=== PATIENT | female | born 1950 | race Caucasian/White ===

== ENCOUNTER 2019-04-13 11:00 | Outpatient (CLI) | payer MEDICARE, SELFPAY ==
--- NOTE | ~2019-04-13 | MM_ITS ---
EXAMINATION: MM screening [facility] BI w loi HISTORY: Screening mammogram TECHNIQUE: Craniocaudal and mediolateral oblique 3-D tomosynthesis images were obtained and synthetic 2-D images were generated. CAD analysis was submitted and interpreted. COMPARISON: 03/17/2018, 02/13/2017, 02/02/2016 bilateral digital screening mammogram examinations BREAST PARENCHYMAL COMPOSITION: There are scattered areas of fibroglandular density. FINDINGS: Bilateral scattered benign calcifications. There is no evidence of suspicious mass, calci fication, or architectural distortion to suggest malignancy in either breast. There has been no suspi cious interval change. IMPRESSION: 1. No mammographic evidence of malignancy. 2. Recommend routine screening mammography in one year. BI-RADS Category 2: Benign finding(s). Reviewed, dictated and finalized at location A. T NURSE
== END 2019-04-13 11:01 | disposition home or self-care (01) ==
LOC: CHSIMG 11:02
PROVIDERS: PCP Family Medicine; Visit Provider Family Medicine
DX: Z12.31 Encounter for screening mammogram for malignant neoplasm of breast (principal)
CPT/HCPCS: 77063; 77067

== ENCOUNTER 2019-10-22 10:40 | Outpatient (CLI) | payer MEDICARE, SELFPAY ==
--- NOTE | ~2019-10-22 | XR_ITS ---
XR foot RT min 3V DATE: 10/22/2019 11:11 INDICATION: Right lateral foot pain for one day following injury from fall TECHNIQUE: 4 views COMPARISON: None FINDINGS: There is moderate osteoarthritis of the first metatarsophalangeal joint with dorsal and med ial spurring of the first metatarsal head. No fracture, dislocation, periosteal reaction or bone destruction is detected. 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
== END 2019-10-22 10:41 | disposition home or self-care (01) ==
PROVIDERS: PCP Family Medicine; Visit Provider Family Medicine
DX: M79.671 Pain in right foot (principal)
CPT/HCPCS: 73630

== ENCOUNTER 2020-05-25 08:03 | Outpatient (CLI) | payer MEDICARE, SELFPAY ==
--- NOTE | ~2020-05-25 | MM_ITS ---
EXAMINATION: MM screening [facility] w loi HISTORY: Screening TECHNIQUE: Craniocaudal and mediolateral oblique 3-D tomosynthesis images were obtained and synthetic 2-D images were generated. CAD analysis was submitted and interpreted. COMPARISON: Comparison to multiple prior studies sequentially, with oldest reviewed study dated 01/11. BREAST PARENCHYMAL COMPOSITION: There are scattered areas of fibroglandular density. FINDINGS: There is no evidence of suspicious mass, calcification, or architectural distortion to sugg est malignancy in either breast. There has been no suspicious interval change. IMPRESSION: 1. No mammographic evidence of malignancy. 2. Recommend routine screening mammography in one year. BI-RADS Category 1: Negative Reviewed, dictated and finalized at location A.
== END 2020-05-25 08:04 | disposition home or self-care (01) ==
LOC: CHSIMG 08:05
PROVIDERS: PCP Family Medicine; Visit Provider Family Medicine
DX: Z12.31 Encounter for screening mammogram for malignant neoplasm of breast (principal)
CPT/HCPCS: 77063; 77067

== ENCOUNTER 2020-10-02 09:29 | Outpatient (CLI) | payer MEDICARE, SELFPAY | END 2020-10-02 09:30 | disposition home or self-care (01) | LOC: CHSIMG 09:30 | PROVIDERS: PCP Family Medicine; Visit Provider Obstetrics & Gynecology | DX: N95.1 Menopausal and female climacteric states (principal); Z53.8 Procedure and treatment not carried out for other reasons | CPT/HCPCS: 99199 ==

== ENCOUNTER 2020-10-05 08:24 | Outpatient (CLI) | payer MEDICARE, SELFPAY ==
--- NOTE | ~2020-10-05 | DEXA_ITS ---
Bone Density Report Name: Kira Ibarra Age: 70 Sex: Female Ethnicity: White Date of : 1950 Indication: osteopenia; monitoring treatment; height loss; Referring Provider: Sandeep Pryor Study: Bone densitometry was performed. Exam Date: October 05, 2020 Accession number: [id number] Bone Density: Region BMD T-score Z-score Classification AP Spine(L1-L4) 0.883 -1.5 0.6 Osteopenia Femoral Neck (Left) 0.568 -2.5 -0.8 Osteoporosis Total Hip (Left) 0.697 -2.0 -0.5 Osteopenia Femoral Neck (Right) 0.556 -2.6 -0.9 Osteoporosis Total Hip (Right) 0.718 -1.8 -0.4 Osteopenia Femoral Neck Mean 0.562 -2.6 -0.8 Osteoporosis Total Hip Mean 0.707 -1.9 -0.5 Osteopenia World Health Organization criteria for BMD impression classify patients as: Normal (T-score at or above -1.0), Osteopenia (T-score between -1.0 and -2.5), or Osteoporosis (T-score at or below -2.5). 10-year Fracture Risk: FRAX not reported because: Some T-score for Spine Total or Hip Total or Femoral Neck at or below -2.5 Treated for osteoporosis Previous Exams: Region Exam Age BMD T-score BMD Change BMD Change Date g/cm2 vs Baseline vs Previous AP Spine (L1-L4) 10/05/2020 70 0.883 -1.5 -0.086 (-8.9%) -0.037 (-4.0%) 03/27/2018 67 0.920 -1.2 -0.050 (-5.1%) 0.035 (4.0%)* 02/02/2016 65 0.884 -1.5 -0.085 (-8.8%) -0.038 (-4.1%) 01/28/2014 63 0.922 -1.1 -0.047 (-4.9%) -0.022 (-2.3%) 01/24/2012 61 0.944 -0.9 -0.025 (-2.6%) -0.025 (-2.6%) 10/30/2007 57 0.969 -0.7 Total Hip(Left) 10/05/2020 70 0.697 -2.0 0.001 (0.1%)# 0.008 (1.1%)# 03/27/2018 67 0.689 -2.1 -0.007 (-1.0%) 0.068 (11.0%)* 02/02/2016 65 0.620 -2.6 -0.076 (-10.9% -0.022 (-3.5%) 01/28/2014 63 0.643 -2.5 -0.053 (-7.7%) -0.047 (-6.8%) 01/24/2012 61 0.690 -2.1 -0.006 (-0.9%) -0.027 (-3.8%) 12/08/2009 59 0.717 -1.8 0.021 (3.0%) 0.021 (3.0%) 10/30/2007 57 0.696 -2.0 Total Hip(Right) 10/05/2020 70 0.718 -1.8 -0.009 (-1.2%) 0.049 (7.3%)# 03/27/2018 67 0.669 -2.2 -0.058 (-7.9%) 0.025 (3.8%) 01/28/2014 63 0.644 -2.4 -0.082 (-11.3% -0.044 (-6.4%) 01/24/2012 61 0.688 -2.1 -0.038 (-5.2%) -0.009 (-1.3%) 12/08/2009 59 0.697 -2.0 -0.029 (-4.0%) -0.029 (-4.0%) 10/30/2007 57 0.726 -1.8 *Denotes significance at 95% confidence level, LSC for AP Spine = 0.022 g/cm2, LSC for Total Hip = 0.027 g/cm2 # Denotes dissimilar scan types or analysis methods Clinical Information Provided by Patient:
== END 2020-10-05 08:25 | disposition home or self-care (01) ==
LOC: CHSIMG 08:26
PROVIDERS: PCP Family Medicine; Visit Provider Obstetrics & Gynecology
DX: Z78.0 Asymptomatic menopausal state (principal); M81.0 Age-related osteoporosis without current pathological fracture
CPT/HCPCS: 77080

== ENCOUNTER 2020-10-30 14:51 | Outpatient (RCR) | payer MEDICARE, SELFPAY ==
--- NOTE | 2020-11-06 12:22 | PTOPEVAL ---
Thank you for referring Kira Ibarra to [facility].? The patient is scheduled to be seen for therapy? ____x/week for ___ weeks. Please review, sign, date and return this plan of care ATA. I agree with and certify that the following plan of care is medically necessary. Referring Physician Date Admitting Provider: Attending Provider: Sandeep Pryor MD Referring Provider: *PT Outpatient Evaluation Start: 10/30/20 15:14 Freq: Status: Active Protocol: Document 10/30/20 15:15 [facility] (Rec: 10/30/20 16:58 [facility] [id number]) Therapy Assessment Status Assessment Status Assessment Status Evaluation Outpatient Past Medical History Neurological History Hx Neurological Disorders No Significant History Cardiovascular History Hx Hypercholesterolemia Yes Respiratory History Hx Asthma Yes Hx Other Respiratory Disorders Yes: chronic infections Gastrointestinal History Hx Appendectomy Yes Hx Gastroesophageal Reflux Disease Yes Hx Polyps Yes Genitourinary History Hx Genitourinary Disorders No Significant History Musculoskeletal History Hx Musculoskeletal Disorders No Significant History Hematological History Hx Hematological Disorders No Significant History Endocrine History Hx Endocrine Disorders No Significant History HEENT History Hx Eye Surgery Yes: silicon stent under left eye Integumentary History Hx Skin Disorders No Significant History Reproductive History Hx Post Menopausal Yes Psychosocial History Hx Psychiatric Disorders No Significant History Pain History History of Any Previous or Ongoing No Significant History Instance of Pain Anesthesia History Hx Anesthesia Reactions No Significant History Evaluation Information Problem Diagnosis osteoporosis Onset 10/26/20 Subjective Information patient reports she is coming Query Text:As Reported By Patient/ to therapy for strengthening Family secondary to her osteoporosis. she reports she does not currently have any known fractures, but reports she has in the past had fractures from minor falls. she reports she has had a fall within in the last month. she reports she was on her boat and missed the ladder. she reports she also fell over the trailer hitch in the car from the boat . Prior Level of Function Comments
--- NOTE | 2020-11-16 13:15 | PTOPEVAL ---
Thank you for referring Kira Ibarra to [facility].? The patient is scheduled to be seen for therapy? ____x/week for ___ weeks. Please review, sign, date and return this plan of care ATA. I agree with and certify that the following plan of care is medically necessary. Referring Physician Date Admitting Provider: Attending Provider: Sandeep Pryor MD Referring Provider: *PT Outpatient Evaluation Start: 10/30/20 15:14 Freq: Status: Active Protocol: Document 11/16/20 11:05 [facility] (Rec: 11/16/20 13:15 [facility] [id number][facility] Therapy Assessment Status Assessment Status Assessment Status Discharge Outpatient Past Medical History Neurological History Hx Neurological Disorders No Significant History Cardiovascular History Hx Hypercholesterolemia Yes Respiratory History Hx Asthma Yes Hx Other Respiratory Disorders Yes: chronic infections Gastrointestinal History Hx Appendectomy Yes Hx Gastroesophageal Reflux Disease Yes Hx Polyps Yes Genitourinary History Hx Genitourinary Disorders No Significant History Musculoskeletal History Hx Musculoskeletal Disorders No Significant History Hematological History Hx Hematological Disorders No Significant History Endocrine History Hx Endocrine Disorders No Significant History HEENT History Hx Eye Surgery Yes: silicon stent under left eye Integumentary History Hx Skin Disorders No Significant History Reproductive History Hx Post Menopausal Yes Psychosocial History Hx Psychiatric Disorders No Significant History Pain History History of Any Previous or Ongoing No Significant History Instance of Pain Anesthesia History Hx Anesthesia Reactions No Significant History Evaluation Information Problem Diagnosis osteoporosis Onset 10/26/20 Subjective Information patient reports she feels Query Text:As Reported By Patient/ good this date. she reports Family she is compliant with her HEP at home. she reports she splits her exercises up between a few days. Pain Assessment Timing of Pain Assessment Timing of Pain Assessment Assessment Self Report Self Report Pain Level 0 Pain Score Pain Score 0: Self Report Lower Extremity Muscle Strength Testing Hip Strength Bilateral Hip Flexion Strength 4+ Good + Hip Abduction Strength 4+ Good + Knee Strength Right Knee Flexion Strength 5 Normal Knee Extension Strength 5 Normal Left Knee Flexion Strength 5 Normal Knee Extension Strength 5 Normal
== END 2020-11-16 13:45 | disposition home or self-care (01) ==
LOC: CHSPT 14:51
PROVIDERS: Visit Provider Obstetrics & Gynecology
DX: M81.0 Age-related osteoporosis without current pathological fracture (principal)
CPT/HCPCS: 97110; 97161

== ENCOUNTER 2020-11-03 14:09 | Outpatient (CLI) | payer MEDICARE, SELFPAY ==
--- NOTE | ~2020-11-03 | US_ITS ---
EXAMINATION: US soft tissue LE RT EXAM DATE: 11/03/2020 14:31 INDICATION: Swelling, mass, or lump right limb. TECHNIQUE: Multiple grayscale and Doppler images of the symptomatic right lateral thigh region were o btained (by a technologist who performed the scan) and subsequently reviewed. There is no prior stud y for comparison. FINDINGS: Scanning in the symptomatic right thigh region of concern demonstrates mildly heterogeneous fat echog enicity and unremarkable underlying musculature. No focal hematoma, abscess or other mass identified. IMPRESSION: Nonspecific subcutaneous fat heterogeneity which could be edema or fat necrosis. No focal hematoma. Reviewed, dictated and finalized at location B.
== END 2020-11-03 14:10 | disposition home or self-care (01) ==
LOC: CHSIMG 14:09
PROVIDERS: PCP Family Medicine; Visit Provider Family Medicine
DX: R22.41 Localized swelling, mass and lump, right lower limb (principal)
CPT/HCPCS: 76882

== ENCOUNTER 2021-05-28 08:20 | Outpatient (CLI) | payer MEDICARE, SELFPAY ==
--- NOTE | ~2021-05-28 | MM_ITS ---
EXAMINATION: MM screening [facility] w loi HISTORY: Screening mammogram TECHNIQUE: Craniocaudal and mediolateral oblique 3-D tomosynthesis images were obtained and synthetic 2-D images were generated. CAD analysis was submitted and interpreted. COMPARISON: 05/25/2020, 04/13/2019, 03/17/2018 bilateral screening mammogram examinations BREAST PARENCHYMAL COMPOSITION: The breasts are almost entirely fatty. FINDINGS: Scattered bilateral benign calcifications. There is no evidence of suspicious mass, calcifi cation, or architectural distortion to suggest malignancy in either breast. There has been no suspici ous interval change. IMPRESSION: 1. No mammographic evidence of malignancy. 2. Recommend routine screening mammography in one year. BI-RADS Category 2: Benign finding(s). Reviewed, dictated and finalized at location A.
== END 2021-05-28 08:21 | disposition home or self-care (01) ==
LOC: CHSIMG 08:21
PROVIDERS: PCP Family Medicine; Visit Provider Obstetrics & Gynecology
DX: Z12.31 Encounter for screening mammogram for malignant neoplasm of breast (principal)
CPT/HCPCS: 77063; 77067

== ENCOUNTER 2021-10-18 13:02 | Outpatient (RCR) | payer MEDICARE, SELFPAY ==
--- NOTE | 2021-10-18 16:25 | PTOPEVAL1 ---
Evaluation Information Assessment Status Evaluation Diagnosis Bilateral Hip OA Subjective Information Kira reports she has been having right hip pain that started in August 2021. She states pain came on all the sudden and she was having trouble with stairs and getting out of chairs. She reports a history of falls and chronic low back pain. When pain did not subside, she went to the rail specialist. She underwent x-rays and it showed bilateral hip osteoarthritis as well as lumbar degenerative disc disease. She had an injection in the right hip around the middle of September. The injection has allowed her to go from sitting to standing without excruciating pain. She has also been able to return to walking about 2 miles with just a mild increase in pain. She reports she previously walked 3-4 miles at a time and at a faster speed. Pain is located currently in the right outer hip. She also notes a decline in her ability to perform yardwork and difficulty sleeping. Reported Pain Level Pain Score 4: Self Report Assessment PT Clinical Summary Kira Ibarra presents to skilled PT for evaluation of right hip pain and has been diagnosed with bilateral hip osteoarthritis. She is reporting difficulty with sit to stand transfers, walking for exercise, sleeping, and performing yard work. She objectively demonstrates tenderness on the right > left greater trochanter , decreased right hip AROM, decreased right > left hip strength, decreased core stability, mildly antalgic gait, and decreased functional abilities. She will benefit from skilled PT to address the above physical and functional limitations with a goal of returning the patient to her previous level of function with minimal pain. Plan of Care Interventions Electrical Stimulation,Hot Pack/Cold Pack,Manual Therapy,Neuro Re-education,Therapeutic Activities, Therapeutic Exercise PT Services Indicated Yes Treatment Frequency and 2 times a week for 8 visits Duration These treatments will address the objective and functional deficits as defined above. The patient will be advanced safely and appropriately in order for the patient to progress towards his/her prior level of function. Additional exercises will be introduced and as well as a comprehensive home exercise program upon discharge, if needed, ?to ensure carryover of functional gains achieved in the clinic. This treatment plan has been reviewed and agreement upo
--- NOTE | 2021-11-22 14:32 | PTOPDC ---
Assessment and note entered by Nancy Fernandez, PT Evaluation Information Assessment Status Discharge Diagnosis Bilateral Hip OA Subjective Information Kira reports her right hip is doing better overall. She feels she has improved 75% overall but she still gets pain after playing golf as well as excessive bending/squatting to work in the yard. She feels she can continue independently at this time. Reported Pain Level Pain Score 2: Self Report Assessment PT Clinical Summary Kira Ibarra has completed 8 skilled PT visits for bilateral hip OA. She is reporting a 75% overall improvement since initiating PT. She does still get pain after playing golf but it is only a 2/10. She also notes increased pain with excessive squatting/bending when she tries to do yard work. She objectively demonstrates improved hip ROM, improved hip strength, improved balance, and improved functional abilities. She will be discharged to an independent [facility] at this time. Plan of Care Treatment Frequency and Discharge Duration
== END 2021-11-22 13:48 | disposition home or self-care (01) ==
LOC: CHSPT 13:02
DX: M16.0 Bilateral primary osteoarthritis of hip (principal)
CPT/HCPCS: 97014; 97110; 97161; G0283

== ENCOUNTER 2021-11-02 08:47 | Outpatient (CLI) | payer MEDICARE, SELFPAY ==
[2021-11-02 08:59] LABS: Basophils Absolute Auto 0.05 K/mm3 (0.00-0.10); Basophils Percent Auto 0.8 % (0.0-1.0); Eosinophils Absolute Auto 0.13 K/mm3 (0.02-0.50); Hematocrit 44.2 % (35.0-42.0); Hemoglobin 14.4 g/dL (11.7-13.8); Immature Granulocyte Absolute 0.06 K/mm3 (0.00-0.00); Immature Granulocyte Percent A 0.9 % (0.0-0.0); Lymphocytes Absolute Auto 1.56 K/mm3 (1.10-4.50); Lymphocytes Percent Auto 24.4 % (18.0-42.0); Mean Corpuscular HGB Conc 32.6 g/dL (32.0-36.0); Mean Corpuscular Hemoglobin 31.4 pg (27.0-31.0); Mean Corpuscular Volume 96.5 fL (78.0-102.0); Mean Platelet Volume 9.9 fl (9.2-11.8); Monocytes Absolute Auto 0.76 K/mm3 (0.10-0.90); Monocytes Percent Auto 11.9 % (2.0-11.0); Neutrophils Absolute Auto 3.8 K/mm3 (1.7-7.2); Platelet Count Result 248 K/mm3 (150-420); Red Blood Count 4.58 M/mm3 (4.20-5.40); White Blood Count 6.4 K/mm3 (4.8-10.8)
[2021-11-02 09:07] LABS: Appearance Urine Clear (Clear); Bilirubin Urine Negative (Negative); Color Urine Light Yellow (Yellow); Glucose Urine UA Negative (Negative); Ketones Urine Negative (Negative); Leukocyte Esterase Ur Negative (Negative); Nitrate Urine Negative (Negative); Protein Urine Negative (Negative); Specific Grav Ur <= 1.005 (1.010-1.020); Urobilinogen Urine 0.2 mg/dL (0.2-1.0)
[2021-11-02 09:16] LABS: Creatinine Urine 32.24 mg/dL (40-278)
[2021-11-02 09:21] LABS: Add Urine Microscopic? YES; Bacteria Urine Trace /hpf; Blood Urine Trace-Intact (Negative); MALB Creatinine Ratio 40.3 mg/g (0-30); Microalbumin Urine Random < 13.0 mg/L; RBC Urine 0-2 /hpf (0-2); Squamous Epithelial Cell Urine Occasional /hpf (Few); WBC Urine None seen /hpf (0-3)
[2021-11-02 09:54] LABS: Alanine Aminotransferase 27 U/L (14-59); Albumin Level 3.5 g/dL (3.4-5.0); Alkaline Phosphatase 70 U/L (46-116); Anion Gap 7 mmol/L (8-16); Aspartate Amino Transferase 20 U/L (15-37); Bilirubin,Total 0.4 mg/dL (0.00-1.00); Blood Urea Nitrogen 12 mg/dL (7-18); Calcium 8.8 mg/dL (8.5-10.1); Carbon Dioxide 29 mmol/L (21-32); Chloride 103 mmol/L (98-108); Cholesterol 204 mg/dL (0-200); Estimated Glomerular Filt Rate > 60; Glucose 92 mg/dL (70-99); HDL Direct 80 mg/dL (40-60); LDL Cholesterol Calculated 115 mg/dL (<130); Osmolality Calculated 287 mOsm/kg (285-295); Potassium 3.6 mmol/L (3.5-5.1); Sodium 139 mmol/L (136-145); Thyroid Stimulating Hormone 1.57 uIU/mL (0.36-3.74); Total Protein 6.5 g/dL (6.4-8.2); Triglycerides 46 mg/dL (0-150)
== END 2021-11-02 08:48 | disposition home or self-care (01) ==
LOC: CHSLAB 08:49
PROVIDERS: PCP Family Medicine; Visit Provider Family Medicine
DX: I10 Essential (primary) hypertension (principal); E78.5 Hyperlipidemia, unspecified
CPT/HCPCS: 36415; 80053; 80061; 81001; 82043; 84443; 85025

== ENCOUNTER 2021-12-27 10:26 | Outpatient (CLI) | payer MEDICARE, SELFPAY ==
--- NOTE | ~2021-12-27 | XR_ITS ---
EXAMINATION: XR lumbar spine 2-3V DATE: 12/27/2021 10:49 INDICATION: Low back pain TECHNIQUE: Anteroposterior and lateral views of the lumbar spine, and cone-down lateral view of the l umbosacral junction were obtained. COMPARISON: 12/25/2016 FINDINGS: Bone alignment is normal. There is no fracture. There is moderate loss of intervertebral di sc space height at L5-S1 and mild loss of disc space height throughout the remainder of the lumbar sp ine. The vertebral body heights are maintained. There is moderate facet joint osteoarthritis of the l ower lumbar spine. Small degenerative osteophytes project from the anterior endplates of multiple colby tebral bodies. IMPRESSION: 1. Mild to moderate lumbar spondylosis without acute findings or significant interval change. Reviewed, dictated and finalized at location F. K DROPPER IMPRESSION: 1. Mild to moderate lumbar spondylosis without acute findings or significant in terval change.
--- NOTE | ~2021-12-27 | XR_ITS ---
EXAMINATION: XR hip RT min 2V DATE: 12/27/2021 10:49 INDICATION: Right hip pain TECHNIQUE: Two views of right hip were obtained. COMPARISON: None. FINDINGS: Bone alignment is normal. There is no fracture. There is mild osteoarthritis of the hip. Ph leboliths are noted in the pelvis. IMPRESSION: 1. No acute osseous abnormality. Reviewed, dictated and finalized at location F. TRO WINNING OPERATOR
== END 2021-12-27 10:27 | disposition home or self-care (01) ==
LOC: CHSIMG 10:28
PROVIDERS: PCP Family Medicine; Visit Provider Family Medicine
DX: M25.551 Pain in right hip (principal); M54.50 Low back pain, unspecified
CPT/HCPCS: 72100; 73502

== ENCOUNTER 2022-01-01 14:01 | Outpatient (RCR) | payer MEDICARE, SELFPAY ==
--- NOTE | 2022-01-01 16:11 | PTOPEVAL1 ---
Assessment and note entered by Nancy Fernandez, PT Evaluation Information Diagnosis low back pain, right hip pain Onset 12/19/21 Subjective Information Kira reports she rolled over in bed about 2 weeks ago and felt a pop in her right hip/lower back. She started having pain immediately down the right leg. She saw her primary care physician and underwent x-rays of the lumbar spine and right hip . X-rays revealed mild OA in the hip and degenerative changes in lumbar spine. She has been taking a muscle relaxer that allows her to sleep fairly well at night. She is having pain in the right lower back, side of the right hip, and outer side of the right calf. She has increased pain with standing more than 10-30 minutes. She denies numbness and tingling. She also has difficulty walking through the grocery store and has to lean on the cart. Reported Pain Level Pain Score 5: Self Report Assessment PT Clinical Summary Kira Ibarra presents with right lower back pain with radiculopathy to the right LE. She had an onset of pain after rolling over in bed. She had recent x-rays that showed mild right hip OA and mild lumbar degenerative disc changes. She is having difficulty with standing and walking. She objectively demonstrates decreased and painful lumbar ROM; tenderness at the right piriformis, right greater trochanter, and right lower leg; decreased core and hip girdle strength; and decreased functional abilities. She will benefit from skilled PT to address these limitations. Plan of Care Interventions Electrical Stimulation,Hot Pack/Cold Pack,Manual Therapy,Patient/Caregiver Educati,Therapeutic Activities,Therapeutic Exercise PT Services Indicated Yes Treatment Frequency and 2 times a week for 8 visits Duration These treatments will address the objective and functional deficits as defined above. The patient will be advanced safely and appropriately in order for the patient to progress towards his/her prior level of function. Additional exercises will be introduced and as well as a comprehensive home exercise program upon discharge, if needed, ?to ensure carryover of functional gains achieved in the clinic. This treatment plan has been reviewed and agreement upon by the patient.
--- NOTE | 2022-02-07 12:03 | PTOPPROG ---
Assessment and note entered by Toma Gavin DPT Evaluation Information Assessment Status Progress Diagnosis low back pain, right hip pain Onset 12/19/21 Subjective Information Pt reports that her MD appointment went well recently and her MRI found that she has a bulging disc. She reports that recently she was sick with COVID but that her back felt a lot better after resting from this. She reports that the pain down her leg is a lot better than it has been as she hasn't had much recently. She reports that her biggest difficulty and pain remains with standing and walking. Assessment PT Clinical Summary Pt presents to PT with significant improvements in pain, strength, and range of motion. She is still limited in her lumbar range of motion (especially with R lat flexion), gait pattern, and tolerance to weight bearing positions. She will continue to benefit from additional skilled PT to further facilitate symptom relief, improve the aforementioned impairments, and return to full functional and recreational activities. Plan of Care PT Services Indicated Yes Treatment Frequency and 2x week for 8 visits Duration These treatments will address the objective and functional deficits as defined above. The patient will be advanced safely and appropriately in order for the patient to progress towards his/her prior level of function. Additional exercises will be introduced and as well as a comprehensive home exercise program upon discharge, if needed, ?to ensure carryover of functional gains achieved in the clinic. This treatment plan has been reviewed and agreement upon by the patient.
--- NOTE | 2022-03-07 16:30 | PTOPDC ---
Assessment and note entered by Nancy Fernandez, PT Evaluation Information Assessment Status Discharge Diagnosis low back pain, R hip pain Onset 12/19/21 Subjective Information Kira Ibarra reports her low back and right hip pain has been minimal since receiving an injection on 02/14/21. She is able to perform ADLs and only avoids heavy lifting because she is weak. She feels comfortable with continuing independently with home exercises for her hip and core. Reported Pain Level Pain Score 1: Self Report Assessment PT Clinical Summary Kira Ibarra has completed 16 skilled PT visits for low back and right hip pain. She is reporting less pain and improved ability to perform daily activities since initiating PT. She objectively demonstrates improved lumbar and hip ROM, improved core and hip strength, and improved functional mobility. She continues to have mild deficits in core and hip strength but she is independent in a HEP to continue after discharge. She will discharged today. Plan of Care Interventions Electrical Stimulation,Hot Pack/Cold Pack,Manual Therapy,Patient/Caregiver Educati,Therapeutic Activities,Therapeutic Exercise PT Services Indicated No Treatment Frequency and Discharge Duration
== END 2022-03-07 17:06 | disposition home or self-care (01) ==
LOC: CHSPT 14:01
PROVIDERS: PCP Family Medicine; Visit Provider Family Medicine
DX: M54.50 Low back pain, unspecified (principal); M25.551 Pain in right hip
CPT/HCPCS: 97014; 97110; 97140; 97161; 97530; G0283

== ENCOUNTER 2022-05-30 13:29 | Outpatient (CLI) | payer MEDICARE, SELFPAY ==
--- NOTE | ~2022-05-30 | MM_ITS ---
EXAMINATION: MM screening [facility] BI w loi HISTORY: Screening mammogram TECHNIQUE: Craniocaudal and mediolateral oblique 3-D tomosynthesis images were obtained and synthetic 2-D images were generated. CAD analysis was submitted and interpreted. COMPARISON: 05/28/2021, 05/25/2020, 04/13/2019 BREAST PARENCHYMAL COMPOSITION: There are scattered areas of fibroglandular density. FINDINGS: Scattered benign-appearing calcifications are present. No suspicious mass, calcification, o r architectural distortion are identified in either breast to suggest malignancy. There has been no s uspicious interval change. IMPRESSION: 1. No mammographic evidence of malignancy. 2. Recommend routine screening mammography in one year. BI-RADS Category 2: Benign finding(s). Reviewed, dictated and finalized at location A.
== END 2022-05-30 13:30 | disposition home or self-care (01) ==
PROVIDERS: PCP Family Medicine; Visit Provider Obstetrics & Gynecology
DX: Z12.31 Encounter for screening mammogram for malignant neoplasm of breast (principal)
CPT/HCPCS: 77063; 77067

== ENCOUNTER 2022-05-31 10:02 | Outpatient (CLI) | payer MEDICARE, SELFPAY ==
--- NOTE | ~2022-05-31 | XR_ITS ---
XR chest 2V 05/31/2022 10:21 Indication: Chronic shortness of breath. Asthma. Procedure: 2 view chest Comparison: Comparison to multiple prior studies sequentially, with oldest reviewed study dated 03/31. Findings: Heart size normal. No focal air space disease, pulmonary edema, pleural effusion or suspect ed pneumothorax. No acute osseous abnormality Impression: 1: No acute cardiopulmonary disease. Reviewed, dictated and finalized at location A. Impression: 1: No acute cardiopulmonary disease.
== END 2022-05-31 10:03 | disposition home or self-care (01) ==
LOC: CHSIMG 10:04
PROVIDERS: PCP Family Medicine; Visit Provider Family Medicine
DX: R06.09 Other forms of dyspnea (principal)
CPT/HCPCS: 71046

== ENCOUNTER 2022-06-17 09:09 | Outpatient (CLI) | payer MEDICARE, SELFPAY ==
--- NOTE | 2022-06-17 09:26 | EST_ITS ---
Patient Info Name: Kira Ibarra Age: 72 years : 1950 Gender: Female Ht: 64 in Wt: 148 lbs BSA: 1.75 m2 Exam Date: 06/17/2022 10:33 AM Exam Location: [facility] Patient Status: Outpatient Admit Date: 06/17/2022 Staff Ordering Physician: Asad Jerry MD Attending Provider: Asad Jerry MD Exam Type: CA stress bianka w NM Summary 1. 1. Negative lexiscan stress test for ischemic ST changes by ECG criteria. 2. 2. Stable hemodynamics throughout the test. 3. 3. Nuclear scan to follow and will be reported separately. Please correlate with it. Protocol: LEXISCAN Stress ECG Details Stage: REST Duration (min): 1 min : 23 sec HR (bpm): 66 SBP (mmHg): --- DBP (mmHg): --- Stage: REST Duration (min): 10 min : 19 sec HR (bpm): 62 SBP (mmHg): --- DBP (mmHg): --- Stage: STAGE 1 Duration (min): 0 min : 16 sec HR (bpm): 63 SBP (mmHg): --- DBP (mmHg): --- Stage: RECOVERY Duration (min): 0 min : 43 sec HR (bpm): 77 SBP (mmHg): --- DBP (mmHg): --- Stage: RECOVERY Duration (min): 1 min : 43 sec HR (bpm): 93 SBP (mmHg): --- DBP (mmHg): --- Stage: RECOVERY Duration (min): 2 min : 43 sec HR (bpm): 88 SBP (mmHg): 120 DBP (mmHg): 69 Stage: RECOVERY Duration (min): 3 min : 43 sec HR (bpm): 86 SBP (mmHg): 119 DBP (mmHg): 65 Stage: RECOVERY Duration (min): 4 min : 43 sec HR (bpm): 82 SBP (mmHg): 116 DBP (mmHg): 70 Stage: RECOVERY Duration (min): 5 min : 43 sec HR (bpm): 82 SBP (mmHg): 118 DBP (mmHg): 68 Stage: RECOVERY Duration (min): 6 min : 43 sec HR (bpm): 77 SBP (mmHg): 115 DBP (mmHg): 68 Stage: RECOVERY Duration (min): 7 min : 32 sec HR (bpm): 76 SBP (mmHg): 115 DBP (mmHg): 68 Rest HR: 62 bpm Peak HR: 94 bpm Rest Sys BP: 120 mmHg Peak Sys BP: 132 mmHg Max Pred HR: 149 bpm % Max Pred HR: 63 % Target HR: 127 bpm Max RPP: 12,408 bpm*mmHg Termination Reason: Completed Protocol Cardiac Symptoms: Shortness of breath Total Time: 0 min : 16 sec Rest Baum BP: 65 mmHg Peak Baum BP: 70 mmHg Total Dose: 0.4 mg Resting ECG Sinus rhythm. Stress ECG No ST changes. Arrhythmias None. Report Signatures
--- NOTE | 2022-06-17 16:33 | WPDCARIOSTRE ---
Nuclear Stress Test INDICATIONS Indications: Chest pain PROCEDURE Procedure Performed: Myocardial Perf Spect-Multi Procedure: Patient underwent a lexiscan stress test and immediately was injected with 33.1 mCi of cardiolyte. Multiple tomographic images were obtained. These are of good quality. There is no evidence of decrease perfusion with stress imaging. A separate resting images were obtained after patient was injected with 10.2 mCi of cardiolyte. Multiple tomographic images were obtained. These are of good quality. There is no evidence of decrease perfusion with rest imaging. CONCLUSION Conclusion: 1. Normal myocardial perfusion imaging demonstrating no perfusion defects with stress or rest imaging. 2. No evidence of reversible ischemia. 3. Left ventriculogram demonstrates normal measured ejection fraction of 75% with no wall motion abnormalities. 4. TID score 0.91 is normal.
== END 2022-06-17 09:10 | disposition home or self-care (01) ==
LOC: CHSIMG 09:12
PROVIDERS: PCP Family Medicine; Visit Provider Family Medicine
DX: I10 Essential (primary) hypertension (principal); R06.09 Other forms of dyspnea; R53.83 Other fatigue
CPT/HCPCS: 78452; 93017; A9502; J2785

== ENCOUNTER 2022-06-25 09:30 | Outpatient (CLI) | payer MEDICARE, SELFPAY | END 2022-06-25 09:31 | disposition home or self-care (01) | PROVIDERS: PCP Family Medicine; Visit Provider Family Medicine | DX: R06.02 Shortness of breath (principal) | CPT/HCPCS: 94060; 94726; 94729 ==

== ENCOUNTER 2022-12-11 09:44 | Outpatient (CLI) | payer MEDICARE, SELFPAY ==
--- NOTE | ~2022-12-11 | DEXA_ITS ---
Bone Density Report Name: KALA COLEMAN Age: 72 Sex: Female Ethnicity: White Date of : 1950 Indication: postmenopausal; screening for osteoporosis; height loss; prior fracture; asthma or emphysema; Referring Provider: Asad Jerry Study: Bone densitometry was performed. Exam Date: December 11, 2022 Accession number: [id number] Bone Density: Region BMD T-score Z-score Classification AP Spine(L1-L4) 0.963 -0.8 1.4 Normal Femoral Neck (Left) 0.557 -2.6 -0.7 Osteoporosis Total Hip (Left) 0.720 -1.8 -0.2 Osteopenia Femoral Neck (Right) 0.568 -2.5 -0.6 Osteoporosis Total Hip (Right) 0.738 -1.7 -0.1 Osteopenia Femoral Neck Mean 0.563 -2.6 -0.7 Osteoporosis Total Hip Mean 0.729 -1.7 -0.2 Osteopenia World Health Organization criteria for BMD impression classify patients as: Normal (T-score at or above -1.0), Osteopenia (T-score between -1.0 and -2.5), or Osteoporosis (T-score at or below -2.5). 10-year Fracture Risk: FRAX not reported because: Some T-score for Spine Total or Hip Total or Femoral Neck at or below -2.5 Treated for osteoporosis Clinical Information Provided by Patient: Has had a low trauma fracture Is being treated for osteoporosis Has used the following medications: Boniva (i.e. ibandronate), Evista (i.e. raloxifene), Fosamax (i.e. alendronate), Vitamin D, Calcium Has the following medical conditions: Asthma or Emphysema Patient maximum height was 65 Menopause Age: 51 No regular weight bearing exercise Drinks caffeinated beverages Onset of menses at age 13 Number of children 3 Impression: The patient has established osteoporosis, based on the Left Femoral Neck T-score and the existence of a prior fracture. The patient has risk factors, including: previous fracture. Discussion: It is important to ask patients whether they are taking their medications and to encourage continued and appropriate compliance with their osteoporosis therapies to reduce fracture risk. It is also important to review their risk factors and encourage appropriate calcium and vitamin D intakes, exercise, fall prevention and other lifestyle measures. Follow-Up: Consider a repeat BMD and Vertebral Fracture Assessment (VFA) exam in 2 years or sooner if medically necessary, to reassess this patient's status. Reported by: Dr. Sterling Moise on 12/11/2022 10:06:00 AM. Reviewed, dictated and finalized at location [facility]amantha MAYEN
== END 2022-12-11 09:45 | disposition home or self-care (01) ==
LOC: CHSIMG 09:46
PROVIDERS: PCP Family Medicine; Visit Provider Family Medicine
DX: Z78.0 Asymptomatic menopausal state (principal); M85.89 Other specified disorders of bone density and structure, multiple sites; M81.0 Age-related osteoporosis without current pathological fracture
CPT/HCPCS: 77080

== ENCOUNTER 2023-01-22 00:18 | Day surgery (SDC) | payer MEDICARE, SELFPAY ==
[2023-01-08 15:23] VITALS: BMI 25.7
--- NOTE | 2023-01-20 09:20 | SUR.PREOP ---
Patient called regarding upcoming procedure. Message left on patient's message regarding preop instructions, appointment times, and procedure prep.
--- NOTE | 2023-01-21 13:28 | PM.HPGS ---
History of Present Illness History of Present Illness Consent: Risks, benefits, and alternatives have been discussed and questions answered. Patient agrees to proceed with procedure. Chief complaint: Dyskinesia of esophagus Narrative: Kira Ibarra is a 72 year old female referred for investigation of refractory reflux symptoms. About 7 years ago she had an endoscopy to investigate dysphagia and was found have a weak lower esophageal sphincter. She has been on a low dose of omeprazole for many years. She had to stop it for a procedure recently and had much more burning, nausea and indigestion. Her concern is whether not she will need to stay on it indefinitely. 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 Osteoporosis Pneumonia Skin cancer SOB (shortness of breath) on exertion Stomach ulcer UTI symptoms Surgical History Surgical History H/O exploratory laparotomy H/O sinus surgery History of appendectomy History of eye surgery Hx of tonsillectomy Family History Family History Father Hypertension Family history of elevated blood lipids Mother Hypertension Family history of elevated blood lipids Other Arthritis Asthma Family history of arthritis Family history of gout HLD (hyperlipidemia) Heart disease Lung disease Social History Social History Smoking status: Never smoker Second hand tobacco smoke exposure: No Alcohol intake: current Alcohol use details: one drink a month Substance use: never Substance use type: does not use Living arrangements: with family Occupation/Education: retired Gender identity (if verbalized by the patient): Female Spiritual care concerns: No Meds Home Medications and Allergies Home Medications Medication Instructions Recorded Confirmed Type atorvastatin 10 mg tablet 10 mg PO DAILY 02/22/19 01/08/23 History budesonide 0.5 mg/2 mL suspension 2 ml inhalation DAILY 02/22/19 01/08/23 History for nebulization cetirizine 10 mg capsule (Zyrtec) 10 mg PO DAILY 02/22/19 01/08/23 History fluticasone furoate 100 1 ea inhalation DAILY 02/22/19 01/08/23 History mcg-vilanterol 25 mcg/dose inhalation powder (Breo Ellipta) gabapentin 300 mg tablet,extended 900 mg PO DAILY 02/22/19 01/08/23 History release 24 hr (Gralise) montelukast 10 mg tablet 10 mg PO DAILY 02/22/19 01/08/23 History omega 3-pot-oep-fish oil 1,000 mg 1 cap PO DAILY 02/22/19 01/08/23 History (120 mg-180 mg) capsule (Fish Oil) omeprazole magnesium 10 mg oral 10 mg PO DAILY 02/22/19 01/08/23 History suspension,delayed release (Prilosec) cbd pill 25 mg .Route PRN 10/26/20 01/08/23 History denosumab 60 mg/mL subcutaneous 60 mg subcut [id number] 11/29/21 01/08/23 History syringe (Prolia) estradiol 4 mcg vaginal insert 4 mcg vaginal 2XW #24 inserts 11/29/21 01/08/23 Rx (Imvexxy Maintenance Pack) albuterol sulfate 90 mcg/actuation 1 puff inhalation DAILY 07/22/22 01/08/23 History aerosol inhaler cefdinir 300 mg capsule 300 mg PO DAILY 01/08/23 01/22/23 History Allergies Allergy/AdvReac Type Severity Reaction Status Date / Time Sulfa (Sulfonamide Allergy Intermediate tach Verified 01/22/23 08:35 Antibiotics) sulfanilamide Allergy Intermediate tachy Verified 01/22/23 08:35 codeine Allergy Unknown Tachycardia Verified 01/22/23 08:35 Exam Const: General: alert Orientation/consciousness: patient oriented x3 Resp: Auscultation: clear to auscultation bilaterally Cardio: Rhyt
[2023-01-22 08:40] VITALS: BP 135/76; PULSE 70; RESP 16; TEMP 36; O2SAT 99
[2023-01-22] MEDS: LACTATED RINGERS 1,000 ML 150 ML IV CONT (08:48)
--- NOTE | 2023-01-22 09:39 | WPDANESEPPF ---
Anes - Initial Pre Proc Eval Procedure: Operation Date: 01/22/23 10:00 Proposed Procedures p Esophagogastroduodenoscopy EGD - Anthony Craven MD Date/Time: 01/22/23 09:39 Surgeon: Anthony Craven MD Pre Op Diagnosis: Dyskinesia of esophagus Patient Data Age: 72 Gender: F Height: 1.6 m Weight: 66.4 kg Last Vital Signs Temp 96.8 F L 01/22/23 08:40 Pulse 70 01/22/23 08:40 Resp 16 01/22/23 08:40 BP 135/76 01/22/23 08:40 Pulse Ox 99 01/22/23 08:40 O2 Del Method Room Air 01/22/23 08:40 Allergies Allergy/AdvReac Type Severity Reaction Status Date / Time Sulfa (Sulfonamide Allergy Intermediate tach Verified 01/22/23 08:35 Antibiotics) sulfanilamide Allergy Intermediate tachy Verified 01/22/23 08:35 codeine Allergy Unknown Tachycardia Verified 01/22/23 08:35 Home Medications Medication Instructions Recorded Confirmed Type atorvastatin 10 mg tablet 10 mg PO DAILY 02/22/19 01/08/23 History budesonide 0.5 mg/2 mL suspension 2 ml inhalation DAILY 02/22/19 01/08/23 History for nebulization cetirizine 10 mg capsule (Zyrtec) 10 mg PO DAILY 02/22/19 01/08/23 History fluticasone furoate 100 1 ea inhalation DAILY 02/22/19 01/08/23 History mcg-vilanterol 25 mcg/dose inhalation powder (Breo Ellipta) gabapentin 300 mg tablet,extended 900 mg PO DAILY 02/22/19 01/08/23 History release 24 hr (Gralise) montelukast 10 mg tablet 10 mg PO DAILY 02/22/19 01/08/23 History omega 7-qdh-mfk-fish oil 1,000 mg 1 cap PO DAILY 02/22/19 01/08/23 History (120 mg-180 mg) capsule (Fish Oil) omeprazole magnesium 10 mg oral 10 mg PO DAILY 02/22/19 01/08/23 History suspension,delayed release (Prilosec) cbd pill 25 mg .Route PRN 10/26/20 01/08/23 History denosumab 60 mg/mL subcutaneous 60 mg subcut [id number] 11/29/21 01/08/23 History syringe (Prolia) estradiol 4 mcg vaginal insert 4 mcg vaginal 2XW #24 inserts 11/29/21 01/08/23 Rx (Imvexxy Maintenance Pack) albuterol sulfate 90 mcg/actuation 1 puff inhalation DAILY 07/22/22 01/08/23 History aerosol inhaler cefdinir 300 mg capsule 300 mg PO DAILY 01/08/23 01/22/23 History Patient hx anesthesia problems: none Family hx anesthesia problems: none Results Review: All pre-operative results and documents have been reviewed as part of the pre-operative evaluation. 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 Osteoporosis Pneumonia Skin cancer SOB (shortness of breath) on exertion Stomach ulcer UTI symptoms Surgical History Surgical History H/O exploratory laparotomy H/O sinus surgery History of appendectomy History of eye surgery Hx of tonsillectomy Family History Family History Father Hypertension Family history of elevated blood lipids Mother Hypertension Family history of elevated blood lipids Other Arthritis Asthma Family history of arthritis Family history of gout HLD (hyperlipidemia) Heart disease Lung disease Social History Social History Smoking status: Never smoker Second hand tobacco smoke exposure: No Alcohol intake: current Alcohol use details: one drink a month Substance use: never Substance use type: does not use Living arrangements: with family Occupation/Education: retired Gender identity (if verbalized by the patient): Female Spiritual care concerns: No Anes - Eval Final PreProcedure Day of Procedure 01/22/23 09:39 Patient weight: normal Heart: regular rate and rhythm Lungs: clear to auscultation Airway: Mallampati scale class II Neurological: alert and oriented Last oral intake: >/= 8 hours
[2023-01-22 09:58] VITALS: BP 107/57; PULSE 67; RESP 20; O2SAT 99
[2023-01-22 10:08] VITALS: BP 114/71; PULSE 71; RESP 20; O2SAT 99
[2023-01-22 10:18] VITALS: BP 121/80; PULSE 75; RESP 20; O2SAT 99
== END 2023-01-22 10:31 | disposition home or self-care (01) ==
PROVIDERS: PCP Family Medicine; Visit Provider Internal Medicine Gastroenterology
PROC: 0DJ08ZZ Inspection of Upper Intestinal Tract, Via Natural or Artificial Opening Endoscopic (ICD-10-PCS; CPT 43235; principal; 2023-01-22 10:00)
DX: K21.00 Gastro-esophageal reflux disease with esophagitis, without bleeding (principal); J45.909 Unspecified asthma, uncomplicated; I10 Essential (primary) hypertension; E78.5 Hyperlipidemia, unspecified; M81.0 Age-related osteoporosis without current pathological fracture; Z79.51 Long term (current) use of inhaled steroids
CPT/HCPCS: 43239; 87081; 88305; J2704; J7120

== ENCOUNTER 2023-06-02 14:13 | Outpatient (CLI) | payer MEDICARE, SELFPAY ==
--- NOTE | ~2023-06-02 | MM_ITS ---
EXAMINATION: MM screening courtney BI w loi HISTORY: Screening mammogram TECHNIQUE: Craniocaudal and mediolateral oblique 3-D tomosynthesis images were obtained and synthetic 2-D images were generated. CAD analysis was submitted and interpreted. COMPARISON: May 30, 2022, May 28, 2021, May 25, 2020 bilateral screening mammogram examinations BREAST PARENCHYMAL COMPOSITION: The breasts are almost entirely fatty. FINDINGS: There are scattered bilateral benign calcifications. There is no evidence of suspicious mas s, calcification, or architectural distortion to suggest malignancy in either breast. There has been no suspicious interval change. IMPRESSION: 1. No mammographic evidence of malignancy. 2. Recommend routine screening mammography in one year. BI-RADS Category 2: Benign finding(s). Reviewed, dictated and finalized at location A.
== END 2023-06-02 14:14 | disposition home or self-care (01) ==
LOC: CHSIMG 14:14
PROVIDERS: PCP Family Medicine; Visit Provider Obstetrics & Gynecology
DX: Z12.31 Encounter for screening mammogram for malignant neoplasm of breast (principal)
CPT/HCPCS: 77063; 77067

== ENCOUNTER 2023-12-24 09:58 | Outpatient (RCR) | payer MEDICARE, SELFPAY ==
--- NOTE | 2023-12-24 10:58 | OPREHPOC ---
Outpatient Therapy Plan of Care This is a Multidisciplinary Plan of Care that may contain components documented by all disciplines (PT, OT, and ST.) PT Problem 1 PT Problem #1 Knowledge Deficit PT Goal 1 Goal / Goal Update The patient will be independent in a home exercise program. Target Visit 4 PT Problem 2 PT Problem #2 Pain PT Goal 1 Goal / Goal Update The patient will report no greater than 3/10 right shoulder and cervical pain with ADLs. Target Visit 8 PT Problem 3 PT Problem #3 Impaired Functional Mobil PT Goal 1 Goal / Goal Update 1. The patient will demonstrate 25% or less self perceived disability per the Quick DASH questionnaire. 2. 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 Target Visit 8 PT Problem 4 PT Problem #4 Impaired Range of Motion PT Goal 1 Goal / Goal Update 1. The patient will improve bilateral cervical rotation AROM to 70 degrees to improve ROM for driving. 2. The patient will improve right shoulder flexion AROM to 140 degrees to improve overhead reaching ability. Target Visit 8
--- NOTE | 2023-12-24 10:58 | PTOPEVAL1 ---
Assessment and note entered by Nancy Fernandez, PT Evaluation Information Assessment Status Evaluation ICD-10 Condition Codes (PT) Cervicalgia M54.2,M25.511 Other ICD-10 Condition Codes ( M75.81, M54.12 PT) Onset 12/10/23 Subjective Information Kira Ibarra reports she fell on her right side when she was trying to get off of bleachers. She was having difficulty with lifting even her water cup. 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 She did not have any fractures. She has a history of whiplash and has had neck pain intermittently. She had an injection into her cervical spine which has helped her pain . She continues to have achiness in her right arm. She notes she has difficulty with sweeping, raking, and trying to picking tech heavier items. Reported Pain Level Pain Score 2,3: Self Report Assessment PT Clinical Summary Kira Ibarra presents with right shoulder and neck pain. Shoulder pain started after a fall in April 2023 and the neck pain has been chronic in nature. She has difficulty with lifting with the right arm as well as repetitive movements of the right UE like sweeping and raking. She objectively demonstrates decreased cervical AROM, decreased and painful right shoulder flexion and abduction AROM, decreased right shoulder strength, impaired upper trunk posture, and decreased functional abilities. She will benefit from skilled PT to address these limitations. Plan of Care Interventions Electrical Stimulation,Hot Pack/Cold Pack,Manual Therapy,Mechanical Traction,Neuro Re-education, Patient/Caregiver Educati,Therapeutic Activities, Therapeutic Exercise PT Services Indicated Yes Treatment Frequency and 2 times a week for 8 visits Duration These treatments will address the objective and functional deficits as defined above. The patient will be advanced safely and appropriately in order for the patient to progress towards his/her prior level of function. Additional exercises will be introduced and as well as a comprehensive home exercise program upon discharge, if needed, ?to ensure carryover of functional gains achieved in the clinic. This treatment plan has been reviewed and agreement upon by the patient.
--- NOTE | 2024-01-22 13:46 | OPREHPOC ---
Outpatient Therapy Plan of Care This is a Multidisciplinary Plan of Care that may contain components documented by all disciplines (PT, OT, and ST.) PT Problem 1 PT Problem #1 Knowledge Deficit PT Goal 1 Goal / Goal Update The patient will be independent in a home exercise program. Target Visit 4 Progress Met PT Problem 2 PT Problem #2 Pain PT Goal 1 Goal / Goal Update The patient will report no greater than 3/10 right shoulder and cervical pain with ADLs. Target Visit 8 Progress Met PT Problem 3 PT Problem #3 Impaired Functional Mobility PT Goal 1 Goal / Goal Update 1. The patient will demonstrate 25% or less self perceived disability per the Quick DASH questionnaire. 2. 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 Target Visit 8 Progress Met PT Problem 4 PT Problem #4 Impaired Range of Motion PT Goal 1 Goal / Goal Update 1. The patient will improve bilateral cervical rotation AROM to 70 degrees to improve ROM for driving. 2. The patient will improve right shoulder flexion AROM to 140 degrees to improve overhead reaching ability. Target Visit 8 Progress Met
--- NOTE | 2024-01-22 13:47 | PTOPDC ---
Assessment and note entered by Nancy Fernandez, PT Evaluation Information Assessment Status Discharge ICD-10 Condition Codes (PT) Cervicalgia M54.2,Pain in right shoulder M25.511 Other ICD-10 Condition Codes ( M75.81, M54.12 PT) Onset 12/10/23 Subjective Information Kira Ibarra reports that her neck and R shoulder is doing better. She notes she still has a little pain in the right shoulder and it worsens with laying on the right side too long. She is able to perform all daily activities though and has been performing exercises at home daily. She also has a metal tool she purchased for self massage at home and she would like PT to show her how to use it. Reported Pain Level Pain Score 1,0: Self Report Assessment PT Clinical Summary Kira Ibarra has completed 8 skilled PT visits for cervical and right shoulder pain. She is reporting decreased pain and improved function. She is able to perform all daily activities and only notes pain with laying on the right side too long. She objectively demonstrates improved right shoulder and cervical AROM, improved right shoulder strength, less tenderness and tension, improved posture, and improved ability to lift items with the right UE. She has met all goals and will be discharged to an independent [facility]. Plan of Care PT Services Indicated No
== END 2024-01-22 13:55 | disposition home or self-care (01) ==
LOC: CHSPT 09:58
DX: M75.81 Other shoulder lesions, right shoulder (principal); M54.12 Radiculopathy, cervical region
CPT/HCPCS: 97014; 97110; 97140; 97161; G0283

== ENCOUNTER 2024-01-26 08:48 | Outpatient (RCR) | payer MEDICARE, SELFPAY ==
--- NOTE | 2024-01-26 09:51 | PTOPEVAL1 ---
Assessment and note entered by Shaheen Mcfarland Evaluation Information Assessment Status Evaluation ICD-10 Condition Codes (PT) Pain in low back M54.50,Radiculopathy, lumbar region M54.16,BPPV right ear H81.11 Onset 08/11/23 Subjective Information Pt. 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 She reports gradual onset of pain. she reports pain had worsened, but had injection about 3 weeks ago. She reports that injection helped to decrease her pain. She states that she cannot stand for significant duration and only standing for about 15 minute before having to sit. She enjoys choir and states that she has to sit frequently during choir practice due to pain. She states that pain will wake her out night. She states that most pain is located along the lateral right thigh. she states that she has undergone MRI which revealed degenerative changes. She states that her goal is to be able to stand with less pain and stand for longer duration. Reported Pain Level Pain Score 3: Self Report Assessment PT Clinical Summary Pt. enters the clinic due to lumbar radiculopathy developed from degenerative changes of the lumbar spine. She presents with noted nystagmus with head rotation to the right indicating likely BPPV as well. Instructed pt. in home Valeria Maneuver and noted positive response to treatment on this date. Pt. presents with impaired postural awareness, impaired trunk mobility, impaired flexibility and l.e. weakness on this date, as well as BPPV. Continued skilled PT is indicated in order to improve these areas to allow for improve standing tolerance and endurance. Plan of Care Interventions Electrical Stimulation,Gait Training,Hot Pack/Cold Pack,Manual Therapy,Mechanical Traction,Neuro Re- education,Patient/Caregiver Education,Therapeutic Activities,Therapeutic Exercise PT Services Indicated Yes Treatment Frequency and 2x/week x 10 visits Duration These treatments will address the objective and functional deficits as defined above. The patient will be advanced safely and appropriately in order for the patient to progress towards his/her prior level of function. Additional exercises will be introduced and as well as a comprehensive home exercise program upon discharge, if needed, ?to ensure carryover of functional gains achieved in the clinic. This treatment plan has been reviewed and agreement upon by the patient.
--- NOTE | 2024-02-20 08:14 | PCPTNOTE ---
Cancelled session due to weather.
--- NOTE | 2024-03-01 11:13 | PTOPDC ---
Assessment and note entered by Shaheen [facility] Evaluation Information Assessment Status Discharge ICD-10 Condition Codes (PT) Pain in low back M54.50,Radiculopathy, lumbar region M54.16,BPPV right ear H81.11 Onset 08/11/23 Subjective Information Pt. reports she is no longer experiencing dizziness. She states that she has not had an episode in a couple weeks. She reports that she is still experiencing right buttock pain, but much less intense. She reports she can stand longer without experiencing pain. She states that she was able to play bells in the choir without noticeable pain increase. Reported Pain Level Pain Score 1: Self Report Assessment PT Clinical Summary Pt. has met the majority of goals. She has developed a comprehensive HEP and provides reports of decreased pain. No indication of dizziness is noted on this date and Kriss Jiang is negative. At this time given her progress she is encouraged to continue with her HEP and will be discharged from our care. Plan of Care PT Services Indicated No
== END 2024-03-01 11:00 | disposition home or self-care (01) ==
LOC: CHSPT 08:48
DX: M54.16 Radiculopathy, lumbar region (principal); M54.50 Low back pain, unspecified; H81.11 Benign paroxysmal vertigo, right ear
CPT/HCPCS: 95992; 97012; 97014; 97110; 97112; 97140; 97161; G0283

== ENCOUNTER 2024-06-03 11:40 | Outpatient (CLI) | payer MEDICARE, SELFPAY ==
--- NOTE | ~2024-06-03 | MM_ITS ---
EXAMINATION: MM screening courtney BI w loi HISTORY: Screening TECHNIQUE: Craniocaudal and mediolateral oblique 3-D tomosynthesis images were obtained and synthetic 2-D images were generated. CAD analysis was submitted and interpreted. COMPARISON: Comparison to multiple prior studies sequentially, with oldest reviewed study dated 06/2018. BREAST PARENCHYMAL COMPOSITION: Not dense: There are scattered areas of fibroglandular density. FINDINGS: There is no evidence of suspicious mass, calcification, or architectural distortion to sugg est malignancy in either breast. There has been no suspicious interval change. IMPRESSION: 1. No mammographic evidence of malignancy. 2. Recommend routine screening mammography in one year. BI-RADS Category 1: Negative Reviewed, dictated and finalized at location A.
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
--- OUTSIDE RECORDS SUMMARY | 2024-06-03 13:08 | XMS_ITS | Encounter Summary ---
Author Organization [facility] Address [address] [place] [address] Phone Care Team Providers Care Bobbin Collector Name Role Phone Asad Jerry MD Primary Care Provide r Encounter Details Date Type Department Care Team (Latest Contact Info) Description 02/15/2019 Orders Only [facility] Scanning, Provider Social History Tobacco Use Types Packs/Day Years Used Date Smoking Tobacco: Never Smokeless Tobacco: Never Alcohol Use Standard Drinks/Week Comments Yes 0 (1 standard drink = 0.6 oz pur e alcohol) Comments Unknown Sex and Gender Information Value Date Recorded Sex Assigned at Not on file Legal Sex Female 11:58 PM RECEIVING TELLER Gender Identity Female 07/26/2019 6:55 AM CDT Sexual Orientation Straight 07/26/2019 6: 55 AM CDT documented as of this encounter Plan of Treatment Not on file documented as of this encounter Procedures Procedure Name Priority Date/Time Associated Diagnosis Comments SCAN - LABS 02/15/2019 documented in this encounter Results * SCAN - LABS (02/15/2019) us Provider Scanning Final Result documented in this encounter Visit Diagnoses Not on filedocumented in this encounter Care Teams Bobbin Collector Relationship Specialty Start Date End Date Asad Jerry MD [address] [place] [address] PCP - General 11/04/16 documented as of this encounter
--- OUTSIDE RECORDS SUMMARY | 2024-06-03 13:08 | XMS_ITS | Encounter Summary ---
Author Organization [facility] Address [address] [place] [address] Phone Care Team Providers Care Safety Teacher Name Role Phone Asad Jerry MD Primary Care Provide r Encounter Details Date Type Department Care Team (Latest Contact Info) Description 12/23/2016 Orders Only [facility] CONVERSION Scanning, Provider Social History Tobacco Use Types Packs/Day Years Used Date Smoking Tobacco: Never Alcohol Use Standard Drinks/Week Comments Yes 0 (1 standard drink = 0.6 oz pur e alcohol) Comments Unknown Sex and Gender Information Value Date Recorded Sex Assigned at Not on file Legal Sex Female 11:58 PM MEDICAL REFERRAL COORDINATOR Gender Identity Female 07/26/2019 6:55 AM CDT Sexual Orientation Straight 07/26/2019 6: 55 AM CDT documented as of this encounter Plan of Treatment Not on file documented as of this encounter Procedures Procedure Name Priority Date/Time Associated Diagnosis Comments METHACHOLINE BRONCHOCHALLENGE REPORT 12/23/2016 1:09 PM MEDICAL REFERRAL COORDINATOR documented in this encounter Results * METHACHOLINE BRONCHOCHALLENGE REPORT (12/23/2016 1:09 PM MEDICAL REFERRAL COORDINATOR) Anatomical Region Laterality Modality Other us Provider Scanning PFT ORDERABLES Final Result documented in this encounter Visit Diagnoses Not on filedocumented in this encounter Care Teams Safety Teacher Relationship Specialty Start Date End Date Asad Jerry MD [address] [place] [address] PCP - General 11/04/16 documented as of this encounter
--- OUTSIDE RECORDS SUMMARY | 2024-06-03 13:08 | XMS_ITS | Clinical Summary ---
Author Organization [facility] Address [address] [place] [address] Care Team Providers Care Casting Machine Set Up Operator Name Role Phone Unavailable Primary Care Provider Unavailabl e Allergies Active Allergy Reactions Criticality Noted Date Comments Sulfa (Sulfonamide Antibiotics) Nausea and Vomiting Low 11/05/2011 Medications raloxifene (EVISTA) 60 mg Oral tablet Take 60 mg by mouth daily. Active fluticasone (FLONASE) 50 mcg/spray Both Nostril SpSn Administer 2 Sprays in each nostril daily. Active Active Problems No known active problems Social History Tobacco Use Types Packs/Day Years Used Date Smoking Tobacco: Never Alcohol Use Standard Drinks/Week Comments Yes 0 (1 standard drink = 0.6 oz pur e alcohol) social Comments No Sex and Gender Information Value Date Recorded Sex Assigned at Not on file Legal Sex Female 6:25 AM GENERAL SERVICE TECHNICIAN Gender Identity Not on file Sexual Orientation Not on file Last Filed Vital Signs Vital Sign Reading Time Taken Comments Blood Pressure 167/88 11/05/2011 10:37 AM CDT Pulse 72 11/05/2011 10:37 AM CDT Temperature 36.8 C (98.2 F) 11/05/2011 10:37 AM CDT Respiratory Rate 19 11/05/2011 10:37 AM CDT Oxygen Saturation - - Inhaled Oxygen Concentration - - Weight 61.8 kg (136 lb 3.2 oz) 11/05/2011 10:37 AM CDT Height 162.6 cm (5' 4 ) 11/05/2011 10:37 AM CDT Body Mass Index 23.38 11/05/2011 10:37 AM CDT Plan of Treatment Health Maintenance Due Date Last Done Comments DTAP/TDAP/TD VACCINES (1 - Tdap) 06/02/1970 BREAST CANCER SCREENING 1991 COLORECTAL SCREENING 06/02/1996 Colorectal Cancer Screening 06/02/1996 FIT-DNA Q 3 years 06/02/1996 FIT/FOBT Q 1 year 06/02/1996 Flex Sig/CT Colonography Q 5 years 06/02/1996 PNEUMOCOCCAL VACCINE 50+ YEARS (1 of 1 - PCV) 06/03/19 02 ZOSTER VACCINE (1 of 2) 06/02/2001 OSTEOPOROSIS SCREENING 06/02/2016 INFLUENZA VACCINE (#1) 2023 RSV VACCINE (60+ or ) (1 - 1-dose 75+ series) 06/02/2026 Insurance [employer]
--- OUTSIDE RECORDS SUMMARY | 2024-06-03 13:08 | XMS_ITS | Encounter Summary ---
Author Organization [facility] Address [address] [place] [address] Phone Care Team Providers Care Netezza Developer Name Role Phone Asad Jerry MD Primary Care Provide r Encounter Details Date Type Department Care Team (Latest Contact Info) Description 11/06/2016 Orders Only [facility] CONVERSION Scanning, Provider Social History Tobacco Use Types Packs/Day Years Used Date Smoking Tobacco: Never Alcohol Use Standard Drinks/Week Comments Yes 0 (1 standard drink = 0.6 oz pur e alcohol) Comments Unknown Sex and Gender Information Value Date Recorded Sex Assigned at Not on file Legal Sex Female 11:58 PM SUPERVISOR TAPING Gender Identity Female 07/26/2019 6:55 AM CDT Sexual Orientation Straight 07/26/2019 6: 55 AM CDT documented as of this encounter Plan of Treatment Not on file documented as of this encounter Procedures Procedure Name Priority Date/Time Associated Diagnosis Comments PULMONARY FUNCTION TEST (PFT) 11/06/2016 9:05 AM CDT documented in this encounter Results * PULMONARY FUNCTION TEST (PFT) (11/06/2016 9:05 AM CDT) Anatomical Region Laterality Modality PFT us Provider Scanning PFT ORDERABLES Final Result documented in this encounter Visit Diagnoses Not on filedocumented in this encounter Care Teams Netezza Developer Relationship Specialty Start Date End Date Asad Jerry MD [address] [place] [address] PCP - General 11/04/16 documented as of this encounter
--- OUTSIDE RECORDS SUMMARY | 2024-06-03 13:08 | XMS_ITS | Referral Summary ---
Author Organization [facility] Address [address] [place] [address] Care Team Providers Care Project Inspector Name Role Phone Asad Jerry MD Primary Care Provide r Encounters Date Type Department Care Team Description 04/21/2024 Telephone [facility] Allergy and Immunology [address] [place] [address] [place] [address] [phone] Ambar Bowden RN 04/20/2024 Documentation [facility] Allergy and Immunology [address] [place] [address] [place] [address] [phone] Ambar Bowden RN Send Out Immunotherapy (Vials Shipped) 04/20/2024 Telephone [facility] Allergy and Immunology [address] [place] [address] [place] [phone] Ambar Bowden, NOÉ Send Out IT 04/19/2024 Treatment [facility] Allergy and Immunology [address] [place] [address] [place] [phone] Nicol Elizabeth MD Seasonal allergic rhinitis due to pollen (Primary Dx); Allergic reaction, subsequent encounter; Allergic reaction, initial encounter 04/19/2024 Telephone [facility] Allergy and Immunology [address] [place] [address] [place] [address] [phone] Ambar Bowden RN Send Out IT 04/16/2024 Telephone [facility] Allergy and Immunology [address] [place] [address] [place] [phone] Ambar Bowden, RN Send Out Immunotherapy 04/06/2024 10:00 AM ARCHITECTURAL PROJECT CAPTAIN Therapy [facility] Otolaryngology [address] 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 She is stimulable for vocal improvement. Based on this, voice therapy should provide her the necessary improvements in her voice. 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 The patient's diagnosis was discussed in detail along with how therapy can improve it. 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 Assessment & Plan (02/23/2019 11:15 AM ARCHITECTURAL PROJECT CAPTAIN): I have recommended voice therapy here at the [facility] in order [...] osteoarthritis 11/04/2016 Moderate persistent asthma, uncomplicated 2016 Immunizations Immunization Administration Dates Next Due Hep [...] 10/26/2019,10/22/2019,05/26/2009 ZOSTER LIVE 08/20/2011 ZOSTER Recombinant 01/14/2018,11/12/2017 Social History Tobacco Use Types Packs/Day Years [...] on file Legal Sex Female 11:58 PM ARCHITECTURAL PROJECT CAPTAIN Gender Identity Female 07/26/2019 6:55 AM CDT Sexual Orientation Straight 07/26/2019 6: 55 AM CDT Last Filed Vital Signs Vital Sign Reading Time Taken Comments Blood Pressure 172/87 12/23/2023 3:09 PM ARCHITECTURAL PROJECT CAPTAIN Pulse 61 12/23/2023 3:09 PM ARCHITECTURAL PROJECT CAPTAIN Temperature 36.5 C (97.7 F) 10/01/2023 10:38 AM CDT Respiratory Rate 16 12/23/2023 3:09 PM ARCHITECTURAL PROJECT CAPTAIN Oxygen Saturation 95% 12/23/2023 3:09 PM ARCHITECTURAL PROJECT CAPTAIN Inhaled Oxygen Concentration - - Weight 68 kg (150 lb) 12/10/2023 9:02 AM CDT Height 162.6 cm (5' 4 ) 12/10/2023 9:02 AM CDT Body Mass Index 25.75 12/10/2023 9:02 AM CDT Plan of Treatment Not on file Procedures Procedure Name Priority Date/Time Associated Diagnosis Comments SCAN - LABS 04/19/2024 12:00 AM CDT from Last 3 Months Results * SCAN - LABS (04/19/2024 12:00 AM CDT) us Provider Scanning Edited Result - Final from Last 3 Months Insurance [facility] Care Teams Project Inspector Relationship Specialty Start Date End Date Asad Jerry MD [address] [place] [address] PCP - General 11/04/16
--- OUTSIDE RECORDS SUMMARY | 2024-06-03 13:08 | XMS_ITS | Encounter Summary ---
Author Organization [facility] Address [address] [place] [address] Phone Care Team Providers Care Retail Banking Manager Name Role Phone Asad Jerry MD Primary Care Provide r Encounter Details Date Type Department Care Team (Latest Contact Info) Description 04/14/2018 Orders Only [facility] Scanning, Provider Social History Tobacco Use Types Packs/Day Years Used Date Smoking Tobacco: Never Smokeless Tobacco: Never Alcohol Use Standard Drinks/Week Comments Yes 0 (1 standard drink = 0.6 oz pur e alcohol) Comments Unknown Sex and Gender Information Value Date Recorded Sex Assigned at Not on file Legal Sex Female 11:58 PM REACTOR OPERATOR Gender Identity Female 07/26/2019 6:55 AM CDT Sexual Orientation Straight 07/26/2019 6: 55 AM CDT documented as of this encounter Plan of Treatment Not on file documented as of this encounter Procedures Procedure Name Priority Date/Time Associated Diagnosis Comments SCAN - LABS 04/14/2018 documented in this encounter Results * SCAN - LABS (04/14/2018) us Provider Scanning Final Result documented in this encounter Visit Diagnoses Not on filedocumented in this encounter Care Teams Retail Banking Manager Relationship Specialty Start Date End Date Asad Jerry MD [address] [place] [address] PCP - General 11/04/16 documented as of this encounter
--- OUTSIDE RECORDS SUMMARY | 2024-06-03 13:09 | XMS_ITS | Encounter Summary ---
Author Organization [facility] Address [address] [place] [address] Phone Care Team Providers Care Documentum Consultant Name Role Phone Asad Jerry MD Primary Care Provide r Encounter Details Date Type Department Care Team (Latest Contact Info) Description 02/25/2017 Orders Only [facility] CONVERSION Scanning, Provider Social History Tobacco Use Types Packs/Day Years Used Date Smoking Tobacco: Never Alcohol Use Standard Drinks/Week Comments Yes 0 (1 standard drink = 0.6 oz pur e alcohol) Comments Unknown Sex and Gender Information Value Date Recorded Sex Assigned at Not on file Legal Sex Female 11:58 PM AGRICULTURAL LOAN OFFICER Gender Identity Female 07/26/2019 6:55 AM CDT Sexual Orientation Straight 07/26/2019 6: 55 AM CDT documented as of this encounter Plan of Treatment Not on file documented as of this encounter Procedures Procedure Name Priority Date/Time Associated Diagnosis Comments PULMONARY FUNCTION TEST (PFT) 02/28/2017 2:51 PM AGRICULTURAL LOAN OFFICER METHACHOLINE BRONCHOCHALLENGE REPORT 02/25/2017 10:37 AM AGRICULTURAL LOAN OFFICER documented in this encounter Results * PULMONARY FUNCTION TEST (PFT) (02/28/2017 2:51 PM AGRICULTURAL LOAN OFFICER) Anatomical Region Laterality Modality PFT us Provider Scanning PFT ORDERABLES Edited Result - Final * METHACHOLINE BRONCHOCHALLENGE REPORT (02/25/2017 10:37 AM AGRICULTURAL LOAN OFFICER) Anatomical Region Laterality Modality Other us Provider Scanning PFT ORDERABLES Final Result documented in this encounter Visit Diagnoses Not on filedocumented in this encounter Care Teams Documentum Consultant Relationship Specialty Start Date End Date Asad Jerry MD [address] [place] [address] PCP - General 11/04/16 documented as of this encounter
--- OUTSIDE RECORDS SUMMARY | 2024-06-03 13:09 | XMS_ITS | Encounter Summary ---
Author Organization [facility] Address [address] [place] [address] Care Team Providers Care Head Of Training And Development Name Role Phone Unavailable Primary Care Provider Unavailabl e Reason for Visit * Reason Onset Date Comments Insurance Issues 01/19/2021 Encounter Details Date Type Department Care Team (Late st Contact Info) Description 01/19/2021 Telephone [facility] Oncology Hematology [facility] [address] [facility] [address] [place] [address] Graham Novoa MD [address] [place] [address] Insurance Issues Social History Tobacco Use Types Packs/Day Years Used Date Smoking Tobacco: Never Alcohol Use Standard Drinks/Week Comments Yes 0 (1 standard drink = 0.6 oz pur e alcohol) Comments Unknown Sex and Gender Information Value Date Recorded Sex Assigned at Not on file Legal Sex Female 2:18 AM FOOD TRADES ASSISTANTS Gender Identity Not on file Sexual Orientation Not on file documented as of this encounter Plan of Treatment Not on file documented as of this encounter Visit Diagnoses Not on filedocumented in this encounter
--- OUTSIDE RECORDS SUMMARY | 2024-06-03 13:09 | XMS_ITS | Encounter Summary ---
Author Organization [facility] Address [address] [place] [address] Phone Care Team Providers Care Orchestrator Name Role Phone Asad Jerry MD Primary Care Provide r Encounter Details Date Type Department Care Team (Latest Contact Info) Description 05/28/2017 Orders Only [facility] CONVERSION Scanning, Provider Social History Tobacco Use Types Packs/Day Years Used Date Smoking Tobacco: Never Alcohol Use Standard Drinks/Week Comments Yes 0 (1 standard drink = 0.6 oz pur e alcohol) Comments Unknown Sex and Gender Information Value Date Recorded Sex Assigned at Not on file Legal Sex Female 11:58 PM EDUCATION CONSULTANT Gender Identity Female 07/26/2019 6:55 AM CDT Sexual Orientation Straight 07/26/2019 6: 55 AM CDT documented as of this encounter Plan of Treatment Not on file documented as of this encounter Procedures Procedure Name Priority Date/Time Associated Diagnosis Comments PULMONARY FUNCTION TEST (PFT) 05/28/2017 1:09 PM CDT documented in this encounter Results * PULMONARY FUNCTION TEST (PFT) (05/28/2017 1:09 PM CDT) Anatomical Region Laterality Modality PFT us Provider Scanning PFT ORDERABLES Final Result documented in this encounter Visit Diagnoses Not on filedocumented in this encounter Care Teams Orchestrator Relationship Specialty Start Date End Date Asad Jerry MD [address] [place] [address] PCP - General 11/04/16 documented as of this encounter
--- OUTSIDE RECORDS SUMMARY | 2024-06-03 13:09 | XMS_ITS | Clinical Summary ---
Author Organization [facility] Address [address] [facility] [address] Attn: Epic Prelude ADT NURIA STEIN [address] Care Team Providers Care Barrel Centerer Name Role Phone Unavailable Primary Care Provider Unavailabl e Allergies Active Allergy Reactions Criticality Noted Date Comments Sulfa (Sulfonamide Antibiotics) Nausea and Vomiting Low 11/05/2011 Social History Tobacco Use Types Packs/Day Years Used Date Smoking Tobacco: Never Alcohol Use Standard Drinks/Week Comments Yes 0 (1 standard drink = 0.6 oz pur e alcohol) Comments Unknown Sex and Gender Information Value Date Recorded Sex Assigned at Not on file Legal Sex Female 2:18 AM MACHINE LEATHER TRIMMER Gender Identity Not on file Sexual Orientation Not on file Plan of Treatment Health Maintenance Due Date [...]
== END 2024-06-03 11:41 | disposition home or self-care (01) ==
LOC: CHSIMG 11:40
PROVIDERS: PCP Family Medicine; Visit Provider Obstetrics & Gynecology
DX: Z12.31 Encounter for screening mammogram for malignant neoplasm of breast (principal)
CPT/HCPCS: 77063; 77067

== ENCOUNTER 2024-07-15 12:18 | Outpatient (CLI) | payer MEDICARE, SELFPAY ==
--- NOTE | ~2024-07-15 | DEXA_ITS ---
Bone Density Report Name: KALA COLEMAN Age: 74 Sex: Female Ethnicity: White Date of : 1950 Indication: osteopenia; monitoring treatment; height loss; prior fracture; cancer; anorexia or bulimia; asthma or emphysema; Referring Provider: ADRIAN NEGRETE Study: Bone densitometry was performed. Exam Date: July 15, 2024 Accession number: [id number] Bone Density: Region BMD T-score Z-score Classification AP Spine(L1-L4) 1.017 -0.3 2.0 Normal Femoral Neck (Left) 0.519 -3.0 -1.0 Osteoporosis Total Hip (Left) 0.746 -1.6 0.1 Osteopenia Femoral Neck (Right) 0.603 -2.2 -0.2 Osteopenia Total Hip (Right) 0.737 -1.7 0.0 Osteopenia Femoral Neck Mean 0.561 -2.6 -0.6 Osteoporosis Total Hip Mean 0.742 -1.6 0.0 Osteopenia World Health Organization criteria for BMD impression classify patients as: Normal (T-score at or above -1.0), Osteopenia (T-score between -1.0 and -2.5), or Osteoporosis (T-score at or below -2.5). 10-year Fracture Risk: FRAX not reported because: Some T-score for Spine Total or Hip Total or Femoral Neck at or below -2.5 Treated for osteoporosis Previous Exams: Region Exam Age BMD T-score BMD Change BMD Change Date g/cm2 vs Baseline vs Previous AP Spine (L1-L4) 07/15/2024 74 1.017 -0.3 0.048 (4.9%)# 0.054 (5.6%)* 12/11/2022 72 0.963 -0.8 -0.006 (-0.6%) 0.080 (9.1%)* 10/05/2020 70 0.883 -1.5 -0.086 (-8.9%) -0.037 (-4.0%) 03/27/2018 67 0.920 -1.2 -0.050 (-5.1%) 0.035 (4.0%)* 02/02/2016 65 0.884 -1.5 -0.085 (-8.8%) -0.038 (-4.1%) 01/28/2014 63 0.922 -1.1 -0.047 (-4.9%) -0.022 (-2.3%) 01/24/2012 61 0.944 -0.9 -0.025 (-2.6%) -0.025 (-2.6%) 10/30/2007 57 0.969 -0.7 Total Hip(Left) 07/15/2024 74 0.746 -1.6 0.050 (7.2%)* 0.050 (7.2%)* 10/05/2020 70 0.697 -2.0 Total Hip(Right) 07/15/2024 74 0.737 -1.7 0.000 (0.0%) 0.000 (0.0%) 12/11/2022 72 0.738 -1.7 *Denotes significance at 95% confidence level, LSC for AP Spine = 0.022 g/cm2, LSC for Total Hip = 0.027 g/cm2 # Denotes dissimilar scan types or analysis methods Clinical Information Provided by Patient: Has had a low trauma fracture Is being treated for osteoporosis Has used the following medications: Evista (i.e. raloxifene), Prolia (i.e. denosumab), Vitamin D, Calcium Has the following medical conditions: Anorexia or Bulimia, Asthma or Emphysema, Cancer Patient maximum height was 65 Menopause Age: 51 No regular weight bearing exercise Does not regularly consume dairy products Drinks caffeinated beverages Onset of menses at age 13 Number of children 3 Impression: The patient has established osteoporosis, based on the Left Femoral Neck T-score and the existence of a prior fracture. The patient has risk factors, including: previous fracture. No significant bone loss was observed. Discussion: PATIENT UNDER TREATMENT WITH NO SIGNIFICANT BMD LOSS SINCE LAST EXAM. In an untreated patient, BMD typically declines with age. A lack of decline or gain is usually a sign that treatment is efficacious and fracture risk is reduced. It is important to ask patients whether they are taking their medications and to encourage continued and appropriate compliance with their osteoporosis therapies to reduce fracture risk. It is also important to review their risk factors and encourage appropriate calcium and vitamin D intakes, exercise, fall prevention and other lifestyle measures. Follow-Up: Consider a repeat BMD and Vertebral Fracture Assessment (VFA) exam in 2 years or sooner if medically necessary, to reassess this patient's status. Reported by: JOEL on 07/15/2024 12:43:00 PM. Reviewed, dictated and finalized at location A.
--- OUTSIDE RECORDS SUMMARY | 2024-07-15 12:53 | XMS_ITS | Encounter Summary ---
Author Organization [facility] Address [address] [place] [address] Phone Care Team Providers Care Sample Case Porter Name Role Phone Asad Jerry MD Primary [...] on file Legal Sex Female 11:58 PM GRANT SPECIALIST Gender Identity Female 07/26/2019 6:55 AM CDT [...] on filedocumented in this encounter Care Teams Sample Case Porter Relationship Specialty Start Date End Date Asad Jerry MD [address] [place] [address] PCP - General 11/04/16 documented as of this encounter
--- OUTSIDE RECORDS SUMMARY | 2024-07-15 12:54 | XMS_ITS | Encounter Summary ---
Author Organization [facility] Address [address] [place] [address] Phone Care Team Providers Care Bonded Structures Repairer Name Role Phone Asad Jerry MD Primary [...] on file Legal Sex Female 11:58 PM PROJECT MANAGER Gender Identity Female 07/26/2019 6:55 AM CDT [...] on filedocumented in this encounter Care Teams Bonded Structures Repairer Relationship Specialty Start Date End Date Asad Jerry MD [address] [place] [address] PCP - General 11/04/16 documented as of this encounter
--- OUTSIDE RECORDS SUMMARY | 2024-07-15 12:54 | XMS_ITS | Encounter Summary ---
Author Organization [facility] Address [address] [place] [address] Phone Care Team Providers Care Swimming Pool Installer And Servicer Name Role Phone Asad Jerry MD Primary [...] on file Legal Sex Female 11:58 PM IN FLIGHT REFUELING SYSTEM REPAIRER Gender Identity Female 07/26/2019 6:55 AM CDT Sexual Orientation Straight 07/26/2019 6: 55 AM CDT documented as of this encounter Plan of Treatment Not on file documented as of this encounter Procedures Procedure Name Priority Date/Time Associated Diagnosis Comments METHACHOLINE BRONCHOCHALLENGE REPORT 12/23/2016 1:09 PM IN FLIGHT REFUELING SYSTEM REPAIRER documented in this encounter Results * METHACHOLINE BRONCHOCHALLENGE REPORT (12/23/2016 1:09 PM IN FLIGHT REFUELING SYSTEM REPAIRER) Anatomical Region Laterality Modality Other us Provider Scanning PFT ORDERABLES Final Result documented in this encounter Visit Diagnoses Not on filedocumented in this encounter Care Teams Swimming Pool Installer And Servicer Relationship Specialty Start Date End Date Asad Jerry MD [address] [place] [address] PCP - General 11/04/16 documented as of this encounter
--- OUTSIDE RECORDS SUMMARY | 2024-07-15 12:54 | XMS_ITS | Encounter Summary ---
Author Organization [facility] Address [address] [place] [address] Phone Care Team Providers Care Lead Printer Name Role Phone Asad Jerry MD Primary [...] on file Legal Sex Female 11:58 PM ORNAMENTER Gender Identity Female 07/26/2019 6:55 AM CDT [...] on filedocumented in this encounter Care Teams Lead Printer Relationship Specialty Start Date End Date Asad Jerry MD [address] [place] [address] PCP - General 11/04/16 documented as of this encounter
--- OUTSIDE RECORDS SUMMARY | 2024-07-15 12:54 | XMS_ITS | Referral Summary ---
Author Organization [facility] Address [address] [place] [address] Care Team Providers Care Hat Stock Laminating Machine Operator Name Role Phone Asad Jerry MD Primary Care Provide r Encounters Date Type Department Care Team Description 07/13/2024 Telephone Radiology - [address] [facility] [address] [place] [address] Angelina Moss RT 07/01/2024 Orders Only [facility] Orthopaedic Surgery [address] [facility] [address] [address] [place] [address] Dorian Wright MD Lumbar radicular pain (Primary Dx); Lumbar spondylosis 06/23/2024 2:00 PM CDT Office Visit [facility] General Neurology [address] [facility] 6th [address] [place] [address] Shakila Wu MD PhD Nummular headache (Primary Dx); Cervicalgia 06/09/2024 10:00 AM CDT Therapy [facility] Otolaryngology [address] [facility] [address] [place] [address] Kim Rader SLP Dysphonia (Primary Dx); Muscle tension dysphonia; Vocal fold atrophy 06/09/2024 10:00 AM CDT Office Visit [facility] ENT [address] [facility] [address] [place] [address] Grazyna Guadarrama MD Dysphonia (Primary Dx); Muscle tension dysphonia 04/21/2024 Telephone [facility] Allergy and Immunology [address] [place] [address] [place] [address] [phone] Ambar Bowden RN 04/20/2024 Documentation [facility] Allergy and Immunology [address] [place] [address] [place] [address] [phone] Ambar Bowden RN Send Out Immunotherapy (Vials Shipped) 04/20/2024 Telephone [facility] Allergy and Immunology [address] [place] [address] [place] [address] [phone] Ambar Bowden RN Send Out IT 04/19/2024 Treatment [facility] Allergy and Immunology [address] [place] [address] [place] [phone] Nicol Elizabeth MD Seasonal allergic rhinitis due to pollen (Primary Dx); Allergic reaction, subsequent encounter; Allergic reaction, initial encounter 04/19/2024 Telephone [facility] Allergy and Immunology [address] [place] [address] [place] [phone] Ambar Bowden RN Send Out IT 04/16/2024 Telephone [facility] Allergy and Immunology [address] [place] [address] [place] [address] [phone] Ambar Bowden RN Send Out Immunotherapy from Last 3 Months Allergies Active Allergy [...] Active albuterol HFA (ProAir HFA) 90 mcg/actuation inhalerIndication s:Moderate persistent asthma without complication Inhale 2 puffs every 4 (four) hours as needed for wheezing or shortness of breath 1 each 02/01/20 22 Active EPINEPHrine 0.3 mg/0.3 mL auto-injection syringeIndication s:Anaphylaxis Inject 0.3 mL (0.3 mg total) into the muscle as instructed as needed for anaphylaxis Call 911 after use. 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 Do not apply on the face or groin) 80 g 2 08/08/19 24 Active Evenity 210 mg/2.34 mL subcutaneous syringe every 30 (thirty) days 08/11/19 24 Active cetirizine (ZyrTEC) 10 mg tablet Take 1 tablet (10 mg total) by mouth daily Active diphenhydrAMINE-a cetaminophen (TYLENOL PM) 25-500 mg tablet Take 1 tablet by mouth as needed for sleep Active budesonide (PULMICORT) 0.5 mg/2 mL nebulizer solution Administer 2 mL (0.5 mg total) into each nostril daily Mix 1 vial in 20mL of saline and instill 10mL of solution into each nostril. 180 mL 1 03/31/19 25 Active montelukast (SINGULAIR) 10 mg tabletIndications :Moderate persistent asthma without complication TAKE 1 TABLET BY MOUTH EVERY DAY AT NIGHT 90 tablet 3 04/20/19 25 Active fluticasone-umecl idin-vilanter (Trelegy Ellipta) 200-62.5-25 mcg inhalerIndication s:Moderate persistent asthma without complication INHALE 1 PUFF DAILY 60 each 1 05/27/19 25 Active IBUPROFEN ORAL Take by mouth A ctive gabapentin ER (GRALISE) 600 mg tablet extended release 24 hr Take 2 tablets (1,200 mg total) by mouth daily 180 tablet 3 06/24/19 25 Active gabapentin ER (GRALISE) 600 mg tablet extended release 24 hr Take 2 tablets (1,200 mg total) by mouth daily 180 tablet 3 07/09/19 24 025 Discontin ued(Reord er) Active Problems Problem Noted Date Diagnosed Date Dysphonia 04/17/2021 Assessment & Plan (04/17/2021 11:24 AM MILLER SUPERVISOR): The trauma of swallowing scalding hot water has led to the development of her dysphonia. She is stimulable for vocal improvement. Based on this, voice therapy should provide her the necessary improvements in her voice. 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 The patient's diagnosis was discussed in detail along with how therapy can improve it. 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 Assessment & Plan (02/23/2019 11:15 AM MILLER SUPERVISOR): I have recommended voice therapy here at the [facility] in order [...] Passive Smoke Exposure: Past Smokeless Tobacco: Never Tobacco Cessation:Counseling Given: Not Answered Alcohol Use Standard Drinks/Week Comments Yes 1 [...] on file Legal Sex Female 11:58 PM MILLER SUPERVISOR Gender Identity Female 07/26/2019 6:55 AM CDT Sexual Orientation Straight 07/26/2019 6: 55 AM CDT Last Filed Vital Signs Vital Sign Reading Time Taken Comments Blood Pressure 131/86 06/23/2024 2:04 PM CDT Pulse 81 06/23/2024 2:04 PM CDT Temperature 36.8 C (98.2 F) 06/23/2024 2:04 PM CDT Respiratory Rate 16 12/23/2023 3:09 PM MILLER SUPERVISOR Oxygen Saturation 95% 06/23/2024 2:04 PM CDT Inhaled Oxygen Concentration - - Weight 70.8 kg (156 lb) 06/23/2024 2:04 PM CDT Height 162.6 cm (5' 4) 06/23/2024 2:04 PM CDT Body Mass Index 26.78 06/23/2024 2:04 PM CDT Plan of Treatment Not on file Procedures Procedure Name Priority Date/Time Associated Diagnosis Comments SCAN - LABS 04/19/2024 12:00 AM CDT from Last 3 Months Results * SCAN - LABS (04/19/2024 12:00 AM CDT) us Provider Scanning Edited Result - Final from Last 3 Months Insurance T MEDICARE T MEDICARE [employer] MEDICARE Care Teams Hat Stock Laminating Machine Operator Relationship Specialty Start Date End Date Asad Jerry MD [address] [place] [address] PCP - General 11/04/16
--- OUTSIDE RECORDS SUMMARY | 2024-07-15 12:54 | XMS_ITS | Encounter Summary ---
Author Organization [facility] Address [address] [place] [address] Phone Care Team Providers Care National Accounts Sales Name Role Phone Asad Jerry MD Primary [...] on file Legal Sex Female 11:58 PM YEAST PUMPER Gender Identity Female 07/26/2019 6:55 AM CDT [...] on filedocumented in this encounter Care Teams National Accounts Sales Relationship Specialty Start Date End Date Asad Jerry MD [address] [place] [address] PCP - General 11/04/16 documented as of this encounter
--- OUTSIDE RECORDS SUMMARY | 2024-07-15 12:54 | XMS_ITS | Clinical Summary ---
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 She is stimulable for vocal improvement. Based on this, voice therapy should provide her the necessary improvements in her voice. 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 The patient's diagnosis was discussed in detail along with how therapy can improve it. 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 Assessment & Plan (02/23/2019 11:15 AM CRANE ENGINEER): I have recommended voice therapy here at the [facility] in order [...] 07/13/2024 Telephone Radiology - [address] [place] [address] Angelina Moss RT 07/01/2024 Orders Only [facility] Orthopaedic Surgery [address] [place] [address] Dorian Wright MD Lumbar radicular pain (Primary Dx); Lumbar spondylosis 06/23/2024 2:00 PM CDT Office Visit [facility] General Neurology [address] 6[address] [place] [phone] Shakila Wu MD PhD Nummular headache (Primary Dx); Cervicalgia 06/09/2024 10:00 AM CDT Therapy [facility] Otolaryngology [address] [place] [phone] Kim Rader SLP Dysphonia (Primary Dx); Muscle tension dysphonia; Vocal fold atrophy 06/09/2024 10:00 AM CDT Office Visit [facility] ENT [address] [place] [phone] Grazyna Guadarrama MD Dysphonia (Primary Dx); Muscle tension dysphonia 04/21/2024 Telephone [facility] Allergy and Immunology [address] [place] [address] [place] [address] [phone] Ambar Bowden RN 04/20/2024 Documentation [facility] Allergy and Immunology [address] [place] [address] [place] [address] [phone] Ambar Bowden, NOÉ Send Out Immunotherapy (Vials Shipped) 04/20/2024 Telephone [facility] Allergy and Immunology [address] [place] [address] [place] [address] [phone] Ambar Bowden RN Send Out IT 04/19/2024 Treatment [facility] Allergy and Immunology [address] [place] [address] [place] [address] [phone] Nicol Elizabeth MD Seasonal allergic rhinitis due to pollen (Primary Dx); Allergic reaction, subsequent encounter; Allergic reaction, initial encounter 04/19/2024 Telephone [facility] Allergy and Immunology [address] [place] [address] [place] [address] [phone] Ambar Bowden RN Send Out IT 04/16/2024 Telephone [facility] Allergy and Immunology [address] [place] [address] [place] [address] [phone] Ambar Bowden RN Send Out Immunotherapy from Last 3 Months Immunizations Immunization Administration [...] [place] FLUORO GUIDED LUMBAR PUNCTURE 12/23/2023 Right BRONCHOSCOPY ? ADENOIDECTOMY 1961 COLONOSCOPY 2017? Medical History Medical History Date Comments Hx [...] nervosa 1986? Infection ? Menstrual problem 1964 Headache 2018? TMJ dysfunction 2019 Recurrent upper respiratory infection (URI) 1954 COPD (chronic obstructive pulmonary disease) ([facility]) 1953 Dizziness 2023 Voice disorder 2021 Family History Medical History Relation Name Comments Hypertension Brother Roshan Bacon Hypertension Daughter 1 Jose Luis Hair Hypertension Daughter 2 Yolie Ibarra Allergies Father M.K. Mustoe Asthma Father M.K. Mustoe COPD Father M.K. Mustoe Family history of chronic obstructive pulmonary disease - (Added by TW Conv) Hearing loss Father M.K. Mustoe Heart disease Father M.K. Mustoe Heart failure Father M.K. Mustoe Family history of congestive heart failure - (Added by TW Conv) Hypertension Father M.K. Mustoe Family history of hypertension - (Added by TW Conv) Memory loss Father M.K. Mustoe Sinusitis Father M.K. Mustoe Allergies Father's Sister Tayla Montejo COPD Father's Sister Tayla Aguilarlivan Heart failure Maternal Grandmother Candace Min Vision loss Maternal Grandmother Candace Min Arthritis Mother Stacy Mustoe Congenital heart disease Mother Stacy Mustoe Heart disease Mother Stacy Mustoe Heart failure Mother Stacy Mustoe Hypertension Mother Stacy Mustoe Family history of hypertension - (Added by TW Conv) Osteoarthritis Mother Stacy Adkinsoe Cancer Mother's Sister Jacqui Naylor Asthma Other 1 Paternal grandmother Family history of Asthma; Hearing loss Other 1 Paternal grandmother Cancer Other 2 Family history of Cancer; COPD Other 3 Family history of COPD; Hypertension Other 4 Family history of Hypertension; Hypertension Sister Jodie Silverman Relation Name Status Comments Brother Roshan Bacon Alive Daughter 1 Jose Luis aHir Daughter 2 Yolie Ibarra Father Robbi. Mustoe Father's Sister Tayla Montejo Maternal Grandmother Candace Infantet Mother Stacy Bacon Mother's Sister Jacqui Naylor Other 1 Paternal grandmother Other 2 Other 3 Other 4 Sister Jodie Silverman Alive Social History Tobacco Use Types Packs/Day Years [...] on file Legal Sex Female 11:58 PM CRANE ENGINEER Gender Identity Female 07/26/2019 6:55 AM CDT Sexual Orientation Straight 07/26/2019 6: 55 AM CDT Obstetrics History Last Filed Vital Signs Vital Sign Reading Time Taken Comments Blood Pressure 131/86 06/23/2024 2:04 PM CDT Pulse 81 06/23/2024 2:04 PM CDT Temperature 36.8 C (98.2 F) 06/23/2024 2:04 PM CDT Respiratory Rate 16 12/23/2023 3:09 PM CRANE ENGINEER Oxygen Saturation 95% 06/23/2024 2:04 PM CDT Inhaled Oxygen Concentration - - Weight 70.8 kg (156 lb) 06/23/2024 2:04 PM CDT Height 162.6 cm (5' 4) 06/23/2024 2:04 PM CDT Body Mass Index 26.78 06/23/2024 2:04 PM CDT Plan of Treatment Health Maintenance Due [...] - Final from Last 3 Months Insurance [facility] [employer] [employer] MEDICARE Care Teams Big Data Solutions Architect Relationship Specialty Start Date End Date Asad Jerry MD [address] [place] [address] PCP - General 11/04/16
--- OUTSIDE RECORDS SUMMARY | 2024-07-15 12:54 | XMS_ITS | Encounter Summary ---
Author Organization [facility] Address [address] [place] [address] Phone Care Team Providers Care Pop Singer Name Role Phone Asad Jerry MD Primary [...] on file Legal Sex Female 11:58 PM BREAKDOWN MILL OPERATOR Gender Identity Female 07/26/2019 6:55 AM CDT Sexual Orientation Straight 07/26/2019 6: 55 AM CDT documented as of this encounter Plan of Treatment Not on file documented as of this encounter Procedures Procedure Name Priority Date/Time Associated Diagnosis Comments PULMONARY FUNCTION TEST (PFT) 02/28/2017 2:51 PM BREAKDOWN MILL OPERATOR METHACHOLINE BRONCHOCHALLENGE REPORT 02/25/2017 10:37 AM BREAKDOWN MILL OPERATOR documented in this encounter Results * PULMONARY FUNCTION TEST (PFT) (02/28/2017 2:51 PM BREAKDOWN MILL OPERATOR) Anatomical Region Laterality Modality PFT us Provider Scanning PFT ORDERABLES Edited Result - Final * METHACHOLINE BRONCHOCHALLENGE REPORT (02/25/2017 10:37 AM BREAKDOWN MILL OPERATOR) Anatomical Region Laterality Modality Other us Provider Scanning PFT ORDERABLES Final Result documented in this encounter Visit Diagnoses Not on filedocumented in this encounter Care Teams Pop Singer Relationship Specialty Start Date End Date Asad Jerry MD [address] [place] [address] PCP - General 11/04/16 documented as of this encounter
--- OUTSIDE RECORDS SUMMARY | 2024-07-15 12:54 | XMS_ITS | Encounter Summary ---
Author Organization [facility] Address [address] [place] [address] Care Team Providers Care Rivet Driver Name Role Phone Unavailable Primary Care Provider Unavailabl e Reason for Visit * Reason Onset Date Comments Insurance Issues 01/19/2021 Encounter Details Date Type Department Care Team (Late st Contact Info) Description 01/19/2021 Telephone [facility] Oncology Hematology [facility] [address] [place] [address] Graham Novoa MD [address] [place] [address] Insurance Issues Social History Tobacco Use Types Packs/Day Years Used Date Smoking Tobacco: Never Alcohol Use Standard Drinks/Week Comments Yes 0 (1 standard drink = 0.6 oz pur e alcohol) Comments Unknown Sex and Gender Information Value Date Recorded Sex Assigned at Not on file Legal Sex Female 2:18 AM WELDER TACK Gender Identity Not on file Sexual Orientation Not on file documented as of this encounter Plan of Treatment Not on file documented as of this encounter Visit Diagnoses Not on filedocumented in this encounter
--- OUTSIDE RECORDS SUMMARY | 2024-07-15 12:54 | XMS_ITS | Clinical Summary ---
Author Organization [facility] Address [address] [facility] Attn: Epic Prelude ADT NURIA STEIN [address] Care Team Providers Care Time Study Observer Name Role Phone Unavailable Primary Care Provider [...] on file Legal Sex Female 2:18 AM NURSE COLLEGE Gender Identity Not on file Sexual Orientation [...]
--- OUTSIDE RECORDS SUMMARY | 2024-07-15 12:54 | XMS_ITS | Clinical Summary ---
Author Organization [facility] Address [address] [place] [address] Care Team Providers Care Kitchen Food Assembler Name Role Phone Unavailable Primary Care Provider [...] on file Legal Sex Female 6:25 AM MEDICAL ADVISOR Gender Identity Not on file Sexual Orientation [...] 10:37 AM CDT Height 162.6 cm (5' 4) 11/05/2011 10:37 AM CDT Body Mass Index [...] (1 - 1-dose 75+ series) 06/02/2026 Insurance [employer]
== END 2024-07-15 12:19 | disposition home or self-care (01) ==
PROVIDERS: PCP Family Medicine; Visit Provider Obstetrics & Gynecology
DX: Z78.0 Asymptomatic menopausal state (principal); M85.89 Other specified disorders of bone density and structure, multiple sites; M81.0 Age-related osteoporosis without current pathological fracture
CPT/HCPCS: 77080

== ENCOUNTER 2024-11-26 10:09 | Outpatient (RCR) | payer MEDICARE, SELFPAY ==
--- NOTE | 2024-11-26 12:09 | OPREHPOC ---
Outpatient Therapy Plan of Care This is a Multidisciplinary Plan of Care that may contain components documented by all disciplines (PT, OT, and ST.) PT Problem 1 PT Problem #1 Knowledge Deficit PT Goal 1 Goal / Goal Update Independent and compliant with HEP. Target Visit 2 PT Problem 2 PT Problem #2 Pain PT Goal 1 Goal / Goal Update Pt to report no worse than 3/10 back/hip pain. Target Visit 12 PT Problem 3 PT Problem #3 Impaired Strength PT Goal 1 Goal / Goal Update Pt to improve L hip flexion to 5/5. Pt to improve R hip flexion to 4+/5. Pt to improve abdominal strength to 4/5. Target Visit 12 PT Problem 4 PT Problem #4 Impaired Flexibility PT Goal 1 Goal / Goal Update Pt to improve bilat piriformis flexibility to no restriction. Pt to improve bilat hamstring flexibility to 10 deg or better. Target Visit 12 PT Problem 5 PT Problem #5 Impaired Functional Mobility PT Goal 1 Goal / Goal Update Pt to report 20% reduction in perceived disability on Oswestry. Pt to report being able to walk 1 mile or more without interference from back or hip pain. Target Visit 12
--- NOTE | 2024-11-26 12:10 | PTOPEVAL1 ---
Assessment and note entered by Blanca Mcknight, PT Evaluation Information Assessment Status Evaluation ICD-10 Condition Codes (PT) Pain in low back M54.50 Other ICD-10 Condition Codes ( M70.61 PT) Onset 04/10/24 Subjective Information Pt reports her back and hip have been hurting since around April of this year. She went to the doctor who did imaging and she has spondylosis and L5-S1 DDD with radiculopathy. She also has R hip pain that has been diagnosed as trochanteric bursitis. She reports that prior to getting a steroid shot 2 days ago, pt was barely able to stand upright or walk. She reports the shot has helped a lot and has minimized her pain, but she still has pain with bending over, prolonged sitting and walking. She also states she would have pain from her R low back/hip region all the way down to her foot but since getting the shot she has not had this pain. Her goal is to get stronger and maintain her strength to avoid surgery at all costs, and she would also like to get back to long distance walking as she was previously able to walk up to 3 miles at a time. Reported Pain Level Pain Score 0,0: Self Report Assessment PT Clinical Summary Mrs. Ibarra is a pleasant 74 yo female presenting to skilled PT evaluation for low back pain and R hip pain with diagnosis of lumbar spondylosis and DDD at L5-S1 as well as right trochanteric bursitis. She demonstrates with significant abdominal and hip mm weakness, as well as limited and painful lumbar AROM and limited bilat hip flexibility. She will benefit from skilled PT intervention to improve on these deficits to improve her ability to walk long distances and perform functional activities with less pain. Plan of Care Interventions Electrical Stimulation,Gait Training,Hot Pack/Cold Pack,Manual Therapy,Neuro Re-education,Patient/ Caregiver Education,Therapeutic Activities, Therapeutic Exercise,Self-Care/Home Management PT Services Indicated Yes Treatment Frequency and 2x/week for 12 visits Duration These treatments will address the objective and functional deficits as defined above. The patient will be advanced safely and appropriately in order for the patient to progress towards his/her prior level of function. Additional exercises will be introduced and as well as a comprehensive home exercise program upon discharge, if needed, ?to ensure carryover of functional gains achieved in the clinic. This treatment plan has been reviewed and agreement upon by the patient.
--- NOTE | 2024-12-28 10:21 | PCPTNOTE ---
Patient called & cancelled scheduled appointment this date due to having another appointment. She will be in on 12/30/24. -Nancy Fernandez PT
--- NOTE | 2025-01-11 11:06 | OPREHPOC ---
Outpatient Therapy Plan of Care This is a Multidisciplinary Plan of Care that may contain components documented by all disciplines (PT, OT, and ST.) PT Problem 1 PT Problem #1 Knowledge Deficit PT Goal 1 Goal / Goal Update Independent and compliant with HEP. Target Visit 2 Progress Met PT Problem 2 PT Problem #2 Pain PT Goal 1 Goal / Goal Update Pt to report no worse than 3/10 back/hip pain. Target Visit 12 Progress Not Met PT Problem 3 PT Problem #3 Impaired Strength PT Goal 1 Goal / Goal Update Pt to improve L hip flexion to 5/5. Pt to improve R hip flexion to 4+/5. Pt to improve abdominal strength to 4/5. Target Visit 12 Progress Partially Met PT Problem 4 PT Problem #4 Impaired Flexibility PT Goal 1 Goal / Goal Update Pt to improve bilat piriformis flexibility to no restriction. Pt to improve bilat hamstring flexibility to 10 deg or better. Target Visit 12 Progress Not Met PT Problem 5 PT Problem #5 Impaired Functional Mobility PT Goal 1 Goal / Goal Update Pt to report 20% reduction in perceived disability on Oswestry. Pt to report being able to walk 1 mile or more without interference from back or hip pain. Target Visit 12 Progress Not Met
--- NOTE | 2025-01-11 11:07 | PTOPPROG ---
Assessment and note entered by Nancy Fernandez, PT Evaluation Information Assessment Status Progress ICD-10 Condition Codes (PT) Pain in low back M54.50 Other ICD-10 Condition Codes ( M70.61 PT) Onset 04/10/24 Subjective Information Pt reports her back and hip haven't gotten much better since she has been coming to PT. She notes less pain after performing her exercises and when laying down. She notes increased pain with standing and walking. She has limitations in how far she can walk and stand. Assessment PT Clinical Summary Mrs. Ibarra has completed 10 out of 12 skilled visits for low back pain and R hip pain with diagnosis of lumbar spondylosis and DDD at L5-S1 as well as right trochanteric bursitis. She demonstrates improvements in core and hip strength . She is progressing toward goals. She continues to have limitations with standing and walking. She will continue to benefit from skilled PT for 2 additional visits. Plan of Care Interventions Electrical Stimulation,Gait Training,Hot Pack/Cold Pack,Manual Therapy,Neuro Re-education,Patient/ Caregiver Education,Therapeutic Activities, Therapeutic Exercise,Self-Care/Home Management PT Services Indicated Yes Treatment Frequency and Continue original POC for 2 additional visits Duration These treatments will address the objective and functional deficits as defined above. The patient will be advanced safely and appropriately in order for the patient to progress towards his/her prior level of function. Additional exercises will be introduced and as well as a comprehensive home exercise program upon discharge, if needed, ?to ensure carryover of functional gains achieved in the clinic. This treatment plan has been reviewed and agreement upon by the patient.
--- NOTE | 2025-01-18 13:11 | PTOPDC ---
Assessment and note entered by Alma Marin DPT Evaluation Information Assessment Status Discharge ICD-10 Condition Codes (PT) Pain in low back M54.50 Other ICD-10 Condition Codes ( M70.61 PT) Onset 04/10/24 Subjective Information patient reports that she continues to be compliant with HEP but pain is still limiting her. She reports that she is limited in walking and completing heavy house hold tasks. Reported Pain Level Pain Score 4,4: Self Report Assessment PT Clinical Summary Mrs. Ibarra attended 12 visits of skilled PT with some progress towards goals but continues to be limited in daily activities by pain. She demonstrates improved B LE strength as well as demonstrates compliance with HEP. She will be discharged at this time and will follow up with MD regarding next steps in care. Plan of Care PT Services Indicated No
== END 2025-01-18 15:04 | disposition home or self-care (01) ==
LOC: CHSPT 10:09
DX: M70.61 Trochanteric bursitis, right hip (principal); M54.50 Low back pain, unspecified
CPT/HCPCS: 97110; 97112; 97140; 97150; 97161; 97530